=== PATIENT | female | born 1995 ===

== ENCOUNTER 2017-07-12 22:09 | Emergency (ER) | payer MEDICAID, OTHER ==
[2017-07-12 22:49] VITALS: RESP 18; TEMP 98.2; O2SAT 100
--- NOTE | 2017-07-13 00:42 | ED PDOC ---
Arrival/HPI - General Chief Complaint: Abdominal Pain Time Seen by Provider: 07/13/17 00:24 Historian: Patient - History of Present Illness Narrative History of Present Illness (Text): 07/13/17 00:39 Pt is a 22 yr old female who presents to the ED with epigastric pain that occurs approximately 20 minutes after eating for the past week. Reports that she typically eats spicy food and drinks moderate amounts of alcohol on the weekends. Denies cp, sob, fever, back pain, diarrhea. LMP 06/10/17 Time/Duration: 1 week Symptom Onset: Gradual Symptom Course: Unchanged Quality: Pressure Severity Level: 4 Activities at Onset: Rest Context: Home Past Medical History - Provider Review Nursing Documentation Reviewed: Yes - Travel History Have you recently traveled outside [place] w/in the past 3 mons?: No - Psychiatric Hx Substance Use: No Family/Social History - Physician Review Nursing Documentation Reviewed: Yes Family/Social History: Unknown Family HX Smoking Status: Light Smoker < 10 Cigarettes Daily Hx Alcohol Use: Yes Frequency of alcohol use: Few days per week Hx Substance Use: No Allergies/Home Meds Allergies/Adverse Reactions: Allergies No Known Allergies Allergy (Verified 07/14/17 05:35) Review of Systems - Review of Systems Constitutional: Normal Eyes: Normal ENT: Normal Respiratory: Normal Cardiovascular: Normal Gastrointestinal: Abdominal Pain, Nausea, Vomiting Genitourinary Female: Normal Musculoskeletal: Normal Skin: Normal Neurological: Normal Endocrine: Normal Hemo/Lymphatic: Normal Psychiatric: Normal Physical Exam Vital Signs Reviewed: Yes Vital Signs Temp Pulse Resp BP Pulse Ox 07/13/17 01:56 77 18 116/55 L 100 07/12/17 22:47 98.2 F 75 18 114/66 100 Temperature: Afebrile Blood Pressure: Normal Pulse: Regular Respiratory Rate: Normal Appearance: Positive for: Well-Appearing, Non-Toxic, Comfortable Pain Distress: None Mental Status: Positive for: Alert and Oriented X 3 - Systems Exam Head: Present: Atraumatic, Normocephalic Pupils: Present: PERRL Extroacular Muscles: Present: EOMI Conjunctiva: Present: Normal Mouth: Present: Moist Mucous Membranes Neck: Present: Normal Range of Motion Respiratory/Chest: Present: Clear to Auscultation, Good Air Exchange. No: Respiratory Distress, Accessory Muscle Use Cardiovascular: Present: Regular Rate and Rhythm, Normal S1, S2. No: Murmurs Abdomen: Present: Tenderness (diffuse), Normal Bowel Sounds. No: Distention, Peritoneal Signs, Rebound, Guarding, McBurney's Point Tender, Rovsing's Sign Present, Hernias, Feeding Tubes, Ostomy Tubes, Mass/Organomegaly, Scars, Other Back: Present: Normal Inspection. No: CVA Tenderness, Midline Tenderness Upper Extremity: Present: Normal Inspection. No: Cyanosis, Edema Lower Extremity: Present: Normal Inspection. No: Edema Neurological: Present: GCS=15, CN II-XII Intact, Speech Normal Skin: Present: Warm, Dry, Normal Color. No: Rashes Psychiatric: Present: Alert, Oriented x 3, Normal Insight, Normal Concentration Medical Decision Making ED Course and Treatment: 07/13/17 00:42 Pt is a 22 yr old female who presents to the ED with epigastric pain that occurs approximately 20 minutes after eating for the past week. On exam, deep palpation did not reproduce her pain, negative [place], negative psoas, negative rebound and rovsing, no involuntary guarding Given patient's history of spicy food and timing of pain after a meal, likely is PUD Plan UA, poc hcg famotidine assess and dispo Progress Note Pt reported mild relief after Pepcid neg hcg no uti detected advised Nexium for home and gave medication directions; return to the ED if no change or worsening of symptoms VSS on dc - Lab Interpretations Lab Results: Lab Results 07/13/17 00:55: Urine Color Yellow, Urine Appearance Sl cloudy, Urine pH 7.0, Ur Specific [place] 1.020, Urine Protein Negative, Urine Glucose (UA) Negative, Urine Ketones Trace H, Urine Blood Trace-intact H, Urine Nitrate Negative, Urine Bilirubin Negative, Urine Urobilinogen 1.0 H, Ur Leukocyte Esterase Negative, Urine RBC 0 - 2, Urine WBC 0 - 2, Ur Epithelial Cells Many, Urine Bacteria Small I have reviewed the lab results: Yes - Medication Orders Current Medication Orders: Discontinued Medications Famotidine (Pepcid) 20 mg IVP DAILY CHUCK Famotidine (Pepcid) 20 mg IVP STAT STA Stop: 07/13/17 00:57 Last Admin: 07/13/17 01:04 Dose: 20 mg IVP Administration Document 07/13/17 01:04 RD (Rec: 07/13/17 01:04 RD [id number]) Charges for Administration # of IVP Administrations 1 Disposition/Present on Arrival - Present on Arrival Any Indicators Present on Arrival: Yes History of DVT/PE: No History of Uncontrolled Diabetes: No Urinary Catheter: No History of Decub. Ulcer: No History Surgical Site Infection Following: None - Disposition Have Diagnosis and Disposition been Completed?: Yes Diagnosis: Gastritis and duodenitis Disposition: HOME/ ROUTINE Disposition Time: 01:25 Patient Plan: Discharge Patient Problems: Current Active Problems Problem Status Onset Cholecystitis Acute Choledocholithiasis Acute Condition: GOOD Discharge Instructions (ExitCare): Gastritis (DC) Additional Instructions: Avoid or decrease spicy foods along with alcohol in your diet. If you continue to have severe abdominal pain after eating, you may require an endoscopic exam to ascertain a gastric or duodenal ulcer, bu seeing a parts counter sales person. If you have any alarming symptoms in the next 24 hrs, return to the ER Prescriptions: Omeprazole 20 mg PO DAILY #10 capsule.dr Forms: [employer] ([place])
[2017-07-13 01:34] LABS: URINE APPEARANCE SL CLOUDY (CLEAR); URINE BILIRUBIN NEGATIVE (NEGATIVE); URINE BLOOD TRACE-INTACT (NEGATIVE); URINE COLOR YELLOW (YELLOW); URINE GLUCOSE (UA) NEGATIVE (NEGATIVE); URINE LEUKOCYTE ESTERASE NEGATIVE Leu/uL (NEGATIVE); URINE PROTEIN NEGATIVE mg/dL (<30 mg/dL)
[2017-07-13 01:48] LABS: URINE EPITHELIAL CELLS MANY /hpf (0-5); URINE RBC 0 - 2 /hpf (0-2); URINE WBC 0 - 2 /hpf (0-6)
[2017-07-13 01:49] LABS: URINE BACTERIA SMALL (NEG)
[2017-07-13 01:59] VITALS: BP 116/55; PULSE 77
== END 2017-07-13 02:04 | disposition home or self-care (01) ==
LOC: ED 22:09
DX: K29.70 Gastritis, unspecified, without bleeding (principal); K29.80 Duodenitis without bleeding; F17.210 Nicotine dependence, cigarettes, uncomplicated

== ENCOUNTER 2017-07-14 05:21 | Inpatient (IN) | payer MEDICAID, OTHER ==
[2017-07-14] MEDS ORDERED: Sodium Chloride 0.9% 1,000 ML IV STA ×2 (05:28→10:34)
--- NOTE | 2017-07-14 05:32 | ED PDOC ---
Arrival/HPI - General Time Seen by Provider: 07/14/17 05:22 - History of Present Illness Narrative History of Present Illness (Text): 07/14/17 05:29 22 yo female, presents with abdominal pain she has had for last day. pt was seen here in er yesterday. states she has epigastric pain, nausea, non bloody vomiting. no diarrhea. no urinary changes. Past Medical History - Psychiatric Hx Substance Use: No Family/Social History - Physician Review Nursing Documentation Reviewed: Yes Family/Social History: Unknown Family HX Smoking Status: Light Smoker < 10 Cigarettes Daily Hx Alcohol Use: Yes Hx Substance Use: No Allergies/Home Meds Allergies/Adverse Reactions: Allergies No Known Allergies Allergy (Verified 07/14/17 05:35) Review of Systems - Review of Systems Constitutional: Normal Eyes: Normal ENT: Normal Respiratory: Normal Cardiovascular: Normal Gastrointestinal: Abdominal Pain, Nausea, Vomiting Genitourinary Female: Normal Musculoskeletal: Normal Skin: Normal Neurological: Normal Endocrine: Normal Hemo/Lymphatic: Normal Psychiatric: Normal Physical Exam Vital Signs Temp Pulse Resp BP Pulse Ox 07/14/17 09:30 98 F 62 18 107/60 98 07/14/17 07:45 62 16 116/74 99 07/14/17 06:45 60 18 119/70 98 07/14/17 05:54 98.1 F 60 24 116/67 98 Temperature: Afebrile Blood Pressure: Normal Pulse: Regular Respiratory Rate: Normal Appearance: Positive for: Well-Appearing, Non-Toxic, Comfortable Pain Distress: None Mental Status: Positive for: Alert and Oriented X 3 - Systems Exam Head: Present: Atraumatic, Normocephalic Pupils: Present: PERRL Extroacular Muscles: Present: EOMI Conjunctiva: Present: Normal Mouth: Present: Moist Mucous Membranes Neck: Present: Normal Range of Motion Respiratory/Chest: Present: Clear to Auscultation, Good Air Exchange. No: Respiratory Distress, Accessory Muscle Use Cardiovascular: Present: Regular Rate and Rhythm, Normal S1, S2. No: Murmurs Abdomen: Present: Tenderness (epigastric), Guarding (voluntary). No: Distention , Peritoneal Signs, Rebound Back: Present: Normal Inspection Upper Extremity: Present: Normal Inspection. No: Cyanosis, Edema Lower Extremity: Present: Normal Inspection. No: Edema Neurological: Present: GCS=15, CN II-XII Intact, Speech Normal Skin: Present: Warm, Dry, Normal Color. No: Rashes Psychiatric: Present: Alert, Oriented x 3, Normal Insight, Normal Concentration Medical Decision Making ED Course and Treatment: 07/14/17 05:31 r/o gastritis pud pancreatitis- labs imaging pending. 07/14/17 06:51 pt endorsed pending results of US, reassessment, and final dispo. - Lab Interpretations Lab Results: 07/14/17 05:33 07/14/17 05:33 Lab Results 07/14/17 05:33: Sodium 141, Potassium 4.0, Chloride 102, Carbon Dioxide 28, Anion Gap 15, BUN 7, Creatinine 0.5 L, Est GFR ( Amer) > 60, Est GFR (Non -Af Amer) > 60, Random Glucose 136 H, Calcium 10.1, Total Bilirubin 1.2, AST 733 H, ALT 442 H, Alkaline Phosphatase 169 H, Total Protein 7.7, Albumin 4.3, Globulin 3.4, Albumin/Globulin Ratio 1.3, Lipase 81 07/14/17 05:33: Urine Color Yellow, Urine Appearance Sl cloudy, Urine pH 8.0, Ur Specific [place] 1.020, Urine Protein Trace H, Urine Glucose (UA) Negative, Urine Ketones Negative, Urine Blood Trace-intact H, Urine Nitrate Negative, Urine Bilirubin Small H, Urine Urobilinogen 4.0 H, Ur Leukocyte Esterase Negative, Urine RBC 0 - 2, Urine WBC 0 - 2, Ur Epithelial Cells 4 - 5, Urine Bacteria Mod, Urine HCG, Qual Negative 07/14/17 05:33: PT 11.9, INR 1.03, APTT 27.1 07/14/17 05:33: WBC 8.4, RBC 4.19, Hgb 12.5, Hct 36.7, MCV 87.6, MCH 29.8, MCHC 34.1, RDW 13.7, Plt Count 447, MPV 10.9, Gran % 78.7 H, Lymph % (Auto) 12.3 L, [place] % (Auto) 7.3 H, Eos % (Auto) 1.3 L, Baso % (Auto) 0.4, Gran # 6.61 H, Lymph # (Auto) 1.0 L, [place] # (Auto) 0.6, Eos # (Auto) 0.1, Baso # (Auto) 0.03 - RAD Interpretation Radiology Orders: 07/14/17 05:28 CXR [CHEST PORTABLE] [RAD] Stat 07/14/17 06:27 ABDOMEN COMPLETE [US] Stat - Medication Orders Current Medication Orders: Sodium Chloride (Sodium Chloride 0.9%) 1,000 mls @ 100 mls/hr IV .Q10H [facility] Last Admin: 07/14/17 12:07 Dose: 100 mls/hr eMAR Start Stop Document 07/14/17 12:07 LMN (Rec: 07/14/17 12:07 [place]N [facility] [id number] Intravenous Solution Start Date 07/14/17 Start Time 12:05 Metronidazole (Flagyl) 500 mg in 100 mls @ 100 mls/hr IVPB Q8 [facility] PRN Reason: Protocol Last Admin: 07/14/17 14:50 Dose: 100 mls/hr eMAR Start Stop Document 07/14/17 14:50 LMN (Rec: 07/14/17 15:35 LMN [facility] [id number][place] Intravenous Solution Start Date 07/14/17 Start Time 14:50 Ceftriaxone Sodium (Rocephin 2 Gm Ivpb) 2 gm in 100 mls @ 100 mls/hr IVPB DAILY [facility] PRN Reason: Protocol Morphine Sulfate (Morphine) 2 mg IVP Q4H PRN PRN Reason: Pain, moderate (4-7) Ondansetron HCl (Zofran Inj) 4 mg IVP Q6H PRN PRN Reason: Nausea/Vomiting Pantoprazole Sodium (Protonix Inj) 40 mg IVP DAILY [facility] Last Admin: 07/14/17 12:07 Dose: 40 mg IVP Administration Document 07/14/17 12:07 LMN (Rec: 07/14/17 12:08 LMN [facility] [id number][place] Charges for Administration # of IVP Administrations 1 Discontinued Medications Sodium Chloride (Sodium Chloride 0.9%) 1,000 mls @ 1,000 mls/hr IV .Q1H STA Stop: 07/14/17 06:27 Last Admin: 07/14/17 05:43 Dose: 1,000 mls/hr eMAR Start Stop Document 07/14/17 05:43 SS (Rec: 07/14/17 05:43 SS [facility] [id number] Intravenous Solution Start Date 07/14/17 Start Time 05:43 End Date 07/14/17 End time 06:43 Total Infusion Time 60 Metronidazole (Flagyl) 500 mg in 100 mls @ 100 mls/hr IVPB STAT STA PRN Reason: Protocol Stop: 07/14/17 09:52 Last Admin: 07/14/17 09:29 Dose: 100 mls/hr eMAR Start Stop Document 07/14/17 09:29 LA (Rec: 07/14/17 09:29 LA [id number]) Intravenous Solution Start Date 07/14/17 Start Time 09:29 End Date 07/14/17 End time 10:29 Total Infusion Time 60 Cefepime HCl (Maxipime 2gm) 2 gm in 100 mls @ 100 mls/hr IVPB STAT STA PRN Reason: Protocol Stop: 07/14/17 09:52 Last Admin: 07/14/17 12:08 Dose: 100 mls/hr eMAR Start Stop Document 07/14/17 12:08 LMN (Rec: 07/14/17 12:08 LMN [facility] [id number] Intravenous Solution Start Date 07/14/17 Start Time 12:08 Sodium Chloride (Sodium Chloride 0.9%) 1,000 mls @ 999 mls/hr IV .Q1H1M STA Stop: 07/14/17 11:34 Last Admin: 07/14/17 10:40 Dose: 999 mls/hr eMAR Start Stop Document 07/14/17 10:40 LMN (Rec: 07/14/17 10:54 LMN [facility] [id number][place] Intravenous Solution Start Date 07/14/17 Start Time 10:45 Ceftriaxone Sodium (Rocephin 1 Gram Ivpb) 1 gm in 100 mls @ 100 mls/hr IVPB DAILY [facility]UCK PRN Reason: Protocol Metronidazole (Flagyl) 500 mg in 100 mls @ 100 mls/hr IVPB Q8 [facility] PRN Reason: Protocol Ketorolac Tromethamine (Toradol) 30 mg IVP STAT STA Stop: 07/14/17 09:26 Last Admin: 07/14/17 09:30 Dose: 30 mg MAR Pain Assessment Document 07/14/17 09:30 LA (Rec: 07/14/17 09:31 LA [id number]) Pain Reassessment Is this a pain reassessment? No Sleep Is patient sleeping during reassessment? No Presence of Pain Presence of Pain Yes Pain Scale Used Pain Scale Used Numeric Location Left, Right or Bilateral Right Upper or Lower Upper Pain Location Body Site Abdomen Description Description Constant Intensity of Pain at present 8 Pain Behavior Crying Guarding IVP Administration Document 07/14/17 09:30 LA (Rec: 07/14/17 09:31 LA [id number]) Charges for Administration # of IVP Administrations 1 Morphine Sulfate (Morphine) 2 mg IVP STAT STA Stop: 07/14/17 05:37 Last Admin: 07/14/17 05:43 Dose: 2 mg IVP Administration Document 07/14/17 05:43 SS (Rec: 07/14/17 05:43 SS [facility] [id number][place] Charges for Administration # of IVP Administrations 1 Morphine Sulfate (Morphine) 2 mg IVP STAT STA Stop: 07/14/17 06:07 Last Admin: 07/14/17 06:10 Dose: 2 mg IVP Administration Document 07/14/17 06:10 SS (Rec: 07/14/17 06:10 SS [facility] [id number]) Charges for Administration # of IVP Administrations 1 Morphine Sulfate (Morphine) 4 mg IVP STAT STA Stop: 07/14/17 06:28 Last Admin: 07/14/17 06:42 Dose: 4 mg MAR Pain Assessment Document 07/14/17 06:42 SS (Rec: 07/14/17 06:44 SS [facility] [id number]) Pain Reassessment Is this a pain reassessment? Yes Sleep Is patient sleeping during reassessment? No Presence of Pain Presence of Pain Yes Pain Scale Used Pain Scale Used Numeric Location Upper or Lower Upper Pain Location Body Site Abdomen Description Description Sharp Intensity of Pain at present 9 Pain Behavior Moaning Crying Guarding Grasping Site Rubbing Site Restlessness Screaming IVP Administration Document 07/14/17 06:42 SS (Rec: 07/14/17 06:44 SS [facility] [id number]) Charges for Administration # of IVP Administrations 1 Morphine Sulfate (Morphine) 4 mg IVP STAT STA Stop: 07/14/17 08:35 Last Admin: 07/14/17 08:40 Dose: 4 mg MAR Pain Assessment Document 07/14/17 08:40 LMC (Rec: 07/14/17 08:40 L[facility] [id number]) Pain Reassessment Is this a pain reassessment? Yes Sleep Is patient sleeping during reassessment? No Presence of Pain Presence of Pain Yes Pain Scale Used Pain Scale Used Numeric Location Left, Right or Bilateral Right Pain Location Body Site Abdomen Description Description Throbbing Intensity of Pain at present 10 IVP Administration Document 07/14/17 08:40 LMC (Rec: 07/14/17 08:40 [facility] [id number]) Charges for Administration # of IVP Administrations 1 Morphine Sulfate (Morphine) 4 mg IVP STAT STA Stop: 07/14/17 08:50 Last Admin: 07/14/17 08:55 Dose: 4 mg MAR Pain Assessment Document 07/14/17 08:55 LMC (Rec: 07/14/17 08:56 L[facility] [id number]) Pain Reassessment Is this a pain reassessment? Yes Sleep Is patient sleeping during reassessment? No Presence of Pain Presence of Pain Yes Location Pain Location Body Site Abdomen Description Description Constant Intensity of Pain at present 9 IVP Administration Document 07/14/17 08:55 LMC (Rec: 07/14/17 08:56 L[facility] [id number]) Charges for Administration # of IVP Administrations 1 Morphine Sulfate (Morphine) 2 mg IVP Q4H PRN PRN Reason: Pain, moderate (4-7) Ondansetron HCl (Zofran Inj) 4 mg IVP STAT STA Stop: 07/14/17 05:29 Last Admin: 07/14/17 05:43 Dose: 4 mg IVP Administration Document 07/14/17 05:43 SS (Rec: 07/14/17 05:43 SS [facility] [id number][place] Charges for Administration # of IVP Administrations 1 Pantoprazole Sodium (Protonix Inj) 40 mg IVP STAT STA Stop: 07/14/17 05:33 Last Admin: 07/14/17 05:43 Dose: 40 mg IVP Administration Document 07/14/17 05:43 SS (Rec: 07/14/17 05:43 SS [facility] [id number]) Charges for Administration # of IVP Administrations 1 Disposition/Present on Arrival - Present on Arrival Any Indicators Present on Arrival: No History of DVT/PE: No History of Uncontrolled Diabetes: No Urinary Catheter: No History Surgical Site Infection Following: None - Disposition Have Diagnosis and Disposition been Completed?: Yes Diagnosis: Cholecystitis, Choledocholithiasis Disposition: HOSPITALIZED Disposition Time: 07:00 Patient Problems: Current Active Problems Problem Status Onset Cholecystitis Acute Choledocholithiasis Acute Condition: GUARDED
[2017-07-14] MEDS ORDERED: Morphine 2 mg/2 mL syringe IVP STA ×2 (05:36→06:06)
[2017-07-14 05:57] LABS: BASO # 0.03 K/mm3 (0.0-2.0); BASO % 0.4 % (0.0-3.0); EOS # 0.1 (0.0-0.7); EOS % 1.3 % (1.5-5.0); GRAN # 6.61 (1.4-6.5); GRAN % 78.7 % (50.0-68.0); HEMOGLOBIN 12.5 g/dL (12.0-16.0); LYMPH % 12.3 % (22.0-35.0); MEAN CELL VOLUME 87.6 fl (80.0-105.0); MEAN CORPUSCULAR HEMOGLOBIN 29.8 pg (25.0-35.0); MEAN CORPUSCULAR HGB CONC 34.1 g/dl (31.0-37.0); MEAN PLATELET VOLUME 10.9 fl (7.0-11.0); MONO # 0.6 (0.1-0.6); MONO % 7.3 % (1.0-6.0); RBC 4.19 10^6/uL (3.5-6.1); RED CELL DISTRIBUTION WIDTH 13.7 % (11.5-14.5); WHITE BLOOD COUNT 8.4 10^3/ul (4.5-11.0)
[2017-07-14 06:04] LABS: ALB/GLOB RATIO 1.3 (1.1-1.8); ALBUMIN 4.3 g/dL (3.0-4.8); ALT/SGPT 442 U/L (7-56); AST/SGOT 733 U/L (14-36); BLOOD UREA NITROGEN 7 mg/dL (7-21); CALCIUM 10.1 mg/dL (8.4-10.5); GFR AFRICAN-AMERICAN > 60; GFR NON-AFRICAN AMERICAN > 60; LIPASE 81 U/L (23-300)
[2017-07-14 06:09] LABS: URINE BILIRUBIN SMALL (NEGATIVE); URINE BLOOD TRACE-INTACT (NEGATIVE); URINE GLUCOSE (UA) NEGATIVE (NEGATIVE); URINE LEUKOCYTE ESTERASE NEGATIVE Leu/uL (NEGATIVE); URINE PROTEIN TRACE mg/dL (<30 mg/dL)
[2017-07-14 06:11] LABS: URINE APPEARANCE SL CLOUDY (CLEAR); URINE COLOR YELLOW (YELLOW)
[2017-07-14] MEDS ORDERED: Morphine 4 mg/ml ISec IVP STA ×3 (06:27→08:49)
[2017-07-14 06:29] LABS: HCG,QUALITATIVE URINE NEGATIVE (NEGATIVE); URINE BACTERIA MOD (NEG); URINE RBC 0 - 2 /hpf (0-2); URINE WBC 0 - 2 /hpf (0-6)
[2017-07-14 06:30] LABS: INR 1.03 (0.93-1.08); PARTIAL THROMBOPLASTIN TIME 27.1 Seconds (25.1-36.5); PROTHROMBIN TIME 11.9 SECONDS (9.4-12.5)
--- NOTE | 2017-07-14 07:29 | ED PDOC ---
Physical Exam Vital Signs Reviewed: Yes Vital Signs Temp Pulse Resp BP Pulse Ox 07/14/17 09:30 98 F 62 18 107/60 98 07/14/17 07:45 62 16 116/74 99 07/14/17 06:45 60 18 119/70 98 07/14/17 05:54 98.1 F 60 24 116/67 98 Temperature: Afebrile Blood Pressure: Normal Pulse: Regular Respiratory Rate: Normal Appearance: Positive for: Well-Appearing Pain Distress: None Medical Decision Making ED Course and Treatment: 07/14/17 07:06 Patient transferrred to al by Dr. Villar. Patient awaiting follow-up Ultrasound , reevaluation and admission. 07/14/2017 08:16 Abdominal Ultrasound IMPRESSION: Sonographic pattern suspicious for cholecystitis the possibly basis of choledocholithiasis as discussed above. Mild dilatation of the common bile duct is identified. Follow-up MRCP is recommended for further characterization of the biliary tree. No gross intrahepatic biliary dilatation. Partial imaging of the pancreas. Dictator: Don Rock MD 07/14/17 08:[address] Leyva, surgery attending, who will evaluate patient. She recommended admitting to the hospitalist service. Case discussed with development vice president, Dr. Stephens. Case discussed with Dr. Mendez, Hospitalist who will come and evaluate patient. 07/14/17 10:[address] Mejia who is covering for GI. He states he ordered an MRCP and he will f/u on her. He states if she's tolerating clears he's ok with that diet. Patient's pain is now controlled. She received an additional Morphine 4mg x 2 and Toradol 30mg IV. - Critical Care Critical Care Minutes: 30 minutes - Lab Interpretations Lab Results: 07/14/17 05:33 07/14/17 05:33 Lab Results 07/14/17 05:33: Sodium 141, Potassium 4.0, Chloride 102, Carbon Dioxide 28, Anion Gap 15, BUN 7, Creatinine 0.5 L, Est GFR ( Amer) > 60, Est GFR (Non -Af Amer) > 60, Random Glucose 136 H, Calcium 10.1, Total Bilirubin 1.2, AST 733 H, ALT 442 H, Alkaline Phosphatase 169 H, Total Protein 7.7, Albumin 4.3, Globulin 3.4, Albumin/Globulin Ratio 1.3, Lipase 81 07/14/17 05:33: Urine Color Yellow, Urine Appearance Sl cloudy, Urine pH 8.0, Ur Specific [place] 1.020, Urine Protein Trace H, Urine Glucose (UA) Negative, Urine Ketones Negative, Urine Blood Trace-intact H, Urine Nitrate Negative, Urine Bilirubin Small H, Urine Urobilinogen 4.0 H, Ur Leukocyte Esterase Negative, Urine RBC 0 - 2, Urine WBC 0 - 2, Ur Epithelial Cells 4 - 5, Urine Bacteria Mod, Urine HCG, Qual Negative 07/14/17 05:33: PT 11.9, INR 1.03, APTT 27.1 07/14/17 05:33: WBC 8.4, RBC 4.19, Hgb 12.5, Hct 36.7, MCV 87.6, MCH 29.8, MCHC 34.1, RDW 13.7, Plt Count 447, MPV 10.9, Gran % 78.7 H, Lymph % (Auto) 12.3 L, [place] % (Auto) 7.3 H, Eos % (Auto) 1.3 L, Baso % (Auto) 0.4, Gran # 6.61 H, Lymph # (Auto) 1.0 L, [place] # (Auto) 0.6, Eos # (Auto) 0.1, Baso # (Auto) 0.03 - RAD Interpretation Radiology Orders: 07/14/17 05:28 CXR [CHEST PORTABLE] [RAD] Stat 07/14/17 06:27 ABDOMEN COMPLETE [US] Stat - Medication Orders Current Medication Orders: Sodium Chloride (Sodium Chloride 0.9%) 1,000 mls @ 100 mls/hr IV .Q10H CHUCK Piperacillin Sod/Tazobactam Sod (Zosyn 3.375 In Ns 100ml) 100 mls @ 200 mls/hr IVPB Q6 CHUCK PRN Reason: Protocol Stop: 07/14/17 18:29 Morphine Sulfate (Morphine) 2 mg IVP Q4H PRN PRN Reason: Pain, moderate (4-7) Ondansetron HCl (Zofran Inj) 4 mg IVP Q6H PRN PRN Reason: Nausea/Vomiting Pantoprazole Sodium (Protonix Inj) 40 mg IVP DAILY CHUCK Discontinued Medications Sodium Chloride (Sodium Chloride 0.9%) 1,000 mls @ 1,000 mls/hr IV .Q1H STA Stop: 07/14/17 06:27 Last Admin: 07/14/17 05:43 Dose: 1,000 mls/hr eMAR Start Stop Document 07/14/17 05:43 SS (Rec: 07/14/17 05:43 SS [facility] [id number]) Intravenous Solution Start Date 07/14/17 Start Time 05:43 End Date 07/14/17 End time 06:43 Total Infusion Time 60 Metronidazole (Flagyl) 500 mg in 100 mls @ 100 mls/hr IVPB STAT STA PRN Reason: Protocol Stop: 07/14/17 09:52 Last Admin: 07/14/17 09:29 Dose: 100 mls/hr eMAR Start Stop Document 07/14/17 09:29 LA (Rec: 07/14/17 09:29 LA [id number]) Intravenous Solution Start Date 07/14/17 Start Time 09:29 End Date 07/14/17 End time 10:29 Total Infusion Time 60 Cefepime HCl (Maxipime 2gm) 2 gm in 100 mls @ 100 mls/hr IVPB STAT STA PRN Reason: Protocol Stop: 07/14/17 09:52 Ketorolac Tromethamine (Toradol) 30 mg IVP STAT STA Stop: 07/14/17 09:26 Last Admin: 07/14/17 09:30 Dose: 30 mg MAR Pain Assessment Document 07/14/17 09:30 LA (Rec: 07/14/17 09:31 LA [id number]) Pain Reassessment Is this a pain reassessment? No Sleep Is patient sleeping during reassessment? No Presence of Pain Presence of Pain Yes Pain Scale Used Pain Scale Used Numeric Location Left, Right or Bilateral Right Upper or Lower Upper Pain Location Body Site Abdomen Description Description Constant Intensity of Pain at present 8 Pain Behavior Crying Guarding IVP Administration Document 07/14/17 09:30 LA (Rec: 07/14/17 09:31 LA [id number]) Charges for Administration # of IVP Administrations 1 Morphine Sulfate (Morphine) 2 mg IVP STAT STA Stop: 07/14/17 05:37 Last Admin: 07/14/17 05:43 Dose: 2 mg IVP Administration Document 07/14/17 05:43 SS (Rec: 07/14/17 05:43 [facility] [id number] Charges for Administration # of IVP Administrations 1 Morphine Sulfate (Morphine) 2 mg IVP STAT STA Stop: 07/14/17 06:07 Last Admin: 07/14/17 06:10 Dose: 2 mg IVP Administration Document 07/14/17 06:10 SS (Rec: 07/14/17 06:10 [facility] [id number] Charges for Administration # of IVP Administrations 1 Morphine Sulfate (Morphine) 4 mg IVP STAT STA Stop: 07/14/17 06:28 Last Admin: 07/14/17 06:42 Dose: 4 mg MAR Pain Assessment Document 07/14/17 06:42 SS (Rec: 07/14/17 06:44 [facility] [id number] Pain Reassessment Is this a pain reassessment? Yes Sleep Is patient sleeping during reassessment? No Presence of Pain Presence of Pain Yes Pain Scale Used Pain Scale Used Numeric Location Upper or Lower Upper Pain Location Body Site Abdomen Description Description Sharp Intensity of Pain at present 9 Pain Behavior Moaning Crying Guarding Grasping Site Rubbing Site Restlessness Screaming IVP Administration Document 07/14/17 06:42 SS (Rec: 07/14/17 06:44 [facility] [id number][facility] Charges for Administration # of IVP Administrations 1 Morphine Sulfate (Morphine) 4 mg IVP STAT STA Stop: 07/14/17 08:35 Last Admin: 07/14/17 08:40 Dose: 4 mg MAR Pain Assessment Document 07/14/17 08:40 [facility] (Rec: 07/14/17 08:40 [facility] [id number]) Pain Reassessment Is this a pain reassessment? Yes Sleep Is patient sleeping during reassessment? No Presence of Pain Presence of Pain Yes Pain Scale Used Pain Scale Used Numeric Location Left, Right or Bilateral Right Pain Location Body Site Abdomen Description Description Throbbing Intensity of Pain at present 10 IVP Administration Document 07/14/17 08:40 [facility] (Rec: 07/14/17 08:40 [facility] [id number]) Charges for Administration # of IVP Administrations 1 Morphine Sulfate (Morphine) 4 mg IVP STAT STA Stop: 07/14/17 08:50 Last Admin: 07/14/17 08:55 Dose: 4 mg MAR Pain Assessment Document 07/14/17 08:55 [facility] (Rec: 07/14/17 08:56 [facility] [id number]) Pain Reassessment Is this a pain reassessment? Yes Sleep Is patient sleeping during reassessment? No Presence of Pain Presence of Pain Yes Location Pain Location Body Site Abdomen Description Description Constant Intensity of Pain at present 9 IVP Administration Document 07/14/17 08:55 [facility] (Rec: 07/14/17 08:56 [facility] [id number]) Charges for Administration # of IVP Administrations 1 Morphine Sulfate (Morphine) 2 mg IVP Q4H PRN PRN Reason: Pain, moderate (4-7) Ondansetron HCl (Zofran Inj) 4 mg IVP STAT STA Stop: 07/14/17 05:29 Last Admin: 07/14/17 05:43 Dose: 4 mg IVP Administration Document 07/14/17 05:43 SS (Rec: 07/14/17 05:43 [facility] [id number][place] Charges for Administration # of IVP Administrations 1 Pantoprazole Sodium (Protonix Inj) 40 mg IVP STAT STA Stop: 07/14/17 05:33 Last Admin: 07/14/17 05:43 Dose: 40 mg IVP Administration Document 07/14/17 05:43 SS (Rec: 07/14/17 05:43 [facility] [id number]) Charges for Administration # of IVP Administrations 1 - Scribe Statement The provider has reviewed the documentation as recorded by the Minh Whitmore Provider Scribe Attestation: All medical record entries made by the Farzanehibtricia were at my direction and personally dictated by me. I have reviewed the chart and agree that the record accurately reflects my personal performance of the history, physical exam, medical decision making, and the department course for this patient. I have also personally directed, reviewed, and agree with the discharge instructions and disposition. Disposition/Present on Arrival - Present on Arrival Any Indicators Present on Arrival: No History of DVT/PE: No History of Uncontrolled Diabetes: No Urinary Catheter: No History of Decub. Ulcer: No History Surgical Site Infection Following: None - Disposition Have Diagnosis and Disposition been Completed?: Yes Diagnosis: Cholecystitis, Choledocholithiasis Disposition Time: 08:49 Patient Plan: Admission Patient Problems: Current Active Problems Problem Status Onset Cholecystitis Acute Choledocholithiasis Acute Condition: GUARDED
--- NOTE | 2017-07-14 08:18 | US ---
HISTORY: upper abd pain COMPARISON: None. TECHNIQUE: Sonographic evaluation of the abdomen. FINDINGS: LIVER: Measures 17.1 cm. Normal echogenicity of the liver parenchyma. No mass. No intrahepatic bile duct dilatation. GALLBLADDER: Gallbladder palm is distended with numerous calculi within the lumen. The wall is thickened up to 3.7 mm at although there is no definitive pericholecystic fluid collection, there is a positive sonographic Fleming sign. Sludge is also identified in the lumen. The common bile duct is measured up to 6.4 mm caliber which is dilated slightly, with an 8-9 mm calculus questioned at its midportion. Follow-up MRCP is advised. PANCREAS: The tail of the pancreas is obscured by overlying bowel gas with remainder unremarkable. RIGHT KIDNEY: Measures 9.5cm. Normal echogenicity. No calculus, mass, or hydronephrosis. LEFT KIDNEY: Measures 9.2cm. Normal echogenicity. No calculus, mass, or hydronephrosis. SPLEEN: Normal in size and contour. No mass. AORTA: No aneurysmal dilatation. IVC: Unremarkable. OTHER FINDINGS: None. IMPRESSION: Sonographic pattern suspicious for cholecystitis the possibly basis of choledocholithiasis as discussed above. Mild dilatation of the common bile duct is identified. Follow-up MRCP is recommended for further characterization of the biliary tree. No gross intrahepatic biliary dilatation. Partial imaging of the pancreas.
--- NOTE | 2017-07-14 08:49 | CP.PCM.CON ---
History of Present Illness - History of Present Illness History of Present Illness: Surgery Consult for Dr Leyva: Reason for consult: cholecystitis, choledocholithiaisis 22 year old female, with no significant PMH, presents with epigastric pain for past 3 days. Pt states that it first started after she had spicy buffalo wings, describes it as achy, cramping. Has associated nausea and nonbilious, nonbloody vomiting episodes. Denies fever, chills, jaundice, change in mental status, diarrhea, constipation, melena, hematochezia, urinary symptoms, cough. Denies previous such episodes. Pt emigrated from [place] 3 months ago. In ED, pt afebrile, vitals stable. Labs significant for elevated AST 733, ALT 442, ALP 169. Abdominal US showed mild dilatation of CBD, 6.4 mm with 8-9 mm calculus in midportion. Thickened gallbladder wall and + sonographic Fleming's. 12 point ROS obtained and negative, except as per HPI. PMH: denies PSH: denies All: NKA FH: denies SH: immigrated from [place] 3 months ago. Lives with father and younger brother. Smokes 3 ciggs/day x past 3 months, occasional marijuana user (last use this morning), drinks alcohol socially. Eats junk, spicy foods. Review of Systems - Review of Systems All systems: reviewed and no additional remarkable complaints except Review of Systems: as per HPI Past Patient History - Past Social History Smoking Status: Light Smoker < 10 Cigarettes Daily - PSYCHIATRIC Hx Substance Use: No - SURGICAL HISTORY Hx Surgeries: No - ANESTHESIA Hx Anesthesia: No Meds Allergies/Adverse Reactions: Allergies Allergy/AdvReac Type Severity Reaction Status Date / Time No Known Allergies Allergy Verified 07/14/17 05:35 Physical Exam - Constitutional Appears: Non-toxic, In Acute Distress - Head Exam Head Exam: ATRAUMATIC, NORMOCEPHALIC - Eye Exam Eye Exam: EOMI, PERRL. absent: Conjunctival injection, Periorbital swelling, Scleral icterus Pupil Exam: NORMAL ACCOMODATION, PERRL. absent: Irregular, Unequal - ENT Exam ENT Exam: Mucous Membranes Moist - Respiratory Exam Respiratory Exam: Clear to Auscultation Bilateral, NORMAL BREATHING PATTERN. absent: Accessory Muscle Use, Rhonchi, Wheezes - Cardiovascular Exam Cardiovascular Exam: RRR, +S1, +S2. absent: Systolic Murmur - GI/Abdominal Exam GI & Abdominal Exam: Guarding, Hypoactive Bowel Sounds, Normal Bowel Sounds, Soft, Tenderness (epigastric). absent: Distended, Firm, Rebound, Rigid - Extremities Exam Extremities exam: Positive for: normal inspection. Negative for: calf tenderness, pedal edema - Back Exam Back exam: NORMAL INSPECTION. absent: CVA tenderness (L), CVA tenderness (R) - Neurological Exam Neurological exam: Alert, Oriented x3 - Psychiatric Exam Psychiatric exam: Normal Affect, Normal Mood - Skin Skin Exam: Dry, Normal Color, Warm Results - Vital Signs Recent Vital Signs: Last Vital Signs Temp 98.1 F 07/14/17 05:54 Pulse 62 07/14/17 07:45 Resp 16 07/14/17 07:45 BP 116/74 07/14/17 07:45 Pulse Ox 99 07/14/17 07:45 - Labs Result Diagrams: 07/14/17 05:33 07/14/17 05:33 Labs: Laboratory Results - last 24 hr 07/14/17 07/14/17 07/14/17 05:33 05:33 05:33 WBC 8.4 RBC 4.19 Hgb 12.5 Hct 36.7 MCV 87.6 MCH 29.8 MCHC 34.1 RDW 13.7 Plt Count 447 MPV 10.9 Gran % 78.7 H Lymph % (Auto) 12.3 L [place] % (Auto) 7.3 H Eos % (Auto) 1.3 L Baso % (Auto) 0.4 Gran # 6.61 H Lymph # (Auto) 1.0 L [place] # (Auto) 0.6 Eos # (Auto) 0.1 Baso # (Auto) 0.03 PT 11.9 INR 1.03 APTT 27.1 Sodium Potassium Chloride Carbon Dioxide Anion Gap BUN Creatinine Est GFR ( Amer) Est GFR (Non-Af Amer) Random Glucose Calcium Total Bilirubin AST ALT Alkaline Phosphatase Total Protein Albumin Globulin Albumin/Globulin Ratio Lipase Urine Color Yellow Urine Appearance Sl cloudy Urine pH 8.0 Ur Specific [place] 1.020 Urine Protein Trace H Urine Glucose (UA) Negative Urine Ketones Negative Urine Blood Trace-intact H Urine Nitrate Negative Urine Bilirubin Small H Urine Urobilinogen 4.0 H Ur Leukocyte Esterase Negative Urine RBC 0 - 2 Urine WBC 0 - 2 Ur Epithelial Cells 4 - 5 Urine Bacteria Mod Urine HCG, Qual Negative 07/14/17 05:33 WBC RBC Hgb Hct MCV MCH MCHC RDW Plt Count MPV Gran % Lymph % (Auto) [place] % (Auto) Eos % (Auto) Baso % (Auto) Gran # Lymph # (Auto) [place] # (Auto) Eos # (Auto) Baso # (Auto) PT INR APTT Sodium 141 Potassium 4.0 Chloride 102 Carbon Dioxide 28 Anion Gap 15 BUN 7 Creatinine 0.5 L Est GFR ( Amer) > 60 Est GFR (Non-Af Amer) > 60 Random Glucose 136 H Calcium 10.1 Total Bilirubin 1.2 AST 733 H ALT 442 H Alkaline Phosphatase 169 H Total Protein 7.7 Albumin 4.3 Globulin 3.4 Albumin/Globulin Ratio 1.3 Lipase 81 Urine Color Urine Appearance Urine pH Ur Specific [place] Urine Protein Urine Glucose (UA) Urine Ketones Urine Blood Urine Nitrate Urine Bilirubin Urine Urobilinogen Ur Leukocyte Esterase Urine RBC Urine WBC Ur Epithelial Cells Urine Bacteria Urine HCG, Qual - Imaging and Cardiology US - abdomen Additional comment: Abd US: Mild dilatation of CBD, 6.4 mm - 8-9mm calculus in midportion. thickened GB wall, 3.7 mm. positive sonographic Fleming sign. No definitive pericholecystic fluid collection. F/u MRCP. Assessment & Plan - Assessment and Plan (Free Text) Assessment: 22 year old female with no significant PMH, presents for cholecystitis/ choledocholithiaisis: - NPO - IV antibiotics - Pain control - Zofran - Follow up GI recs. - Further recs per Dr Leyva - Date & Time Date: 07/14/17 Time: 09:49
[2017-07-14] MEDS ORDERED: Cefepime IV 2 gm in NS 2 GM/100 ML BAG IVPB STA (08:53)
[2017-07-14] MEDS ORDERED: metroNIDAZOLE IV 500 mg/100 ml 500 MG/100 ML BAG IVPB STA (08:53)
--- NOTE | 2017-07-14 09:10 | RAD ---
HISTORY: abd pain COMPARISON: No prior. FINDINGS: LUNGS: No active pulmonary disease. PLEURA: No significant pleural effusion identified, no pneumothorax apparent. CARDIOVASCULAR: Normal. OSSEOUS STRUCTURES: No significant abnormalities. VISUALIZED UPPER ABDOMEN: Normal. OTHER FINDINGS: None. IMPRESSION: No active disease.
[2017-07-14] MEDS ORDERED: Morphine 2 mg/ml ISec IVP PRN (09:43)
[2017-07-14] MEDS ORDERED: Morphine 2 mg/2 mL syringe IVP PRN ×2 (09:54→21:26)
--- NOTE | 2017-07-14 10:50 | CP.PCM.HP ---
<Wanda Valdez - Last Filed: 07/14/17 13:56> History of Present Illness - History of Present Illness History of Present Illness: 22 year old female with no past medical history who presents with 3 days of worsening epigastric pain, nausea, vomiting. The pain has become persistent and localized to the epigastric area, non-radiating, worsened with meals. She denies any relieving factors. She denies fever, chills, weight loss, dysuria, hematochezia, melena or rash. She reports eating spicy foods. She has never been and has never had a surgery before. She is sexually active, does not use contraceptive, LMP was in the middle of June of this year. She admits to a similar episode of severe abdominal pain a week ago that resolved spontaneously and lasted less than 30 minutes. PMH: Denies PSH: Denies FH: Denies Allergies: NKDA Social: Smokes 3 cigarettes for the past 3 months, drinks on the weekends, works at [employer] Present on Admission - Present on Admission Any Indicators Present on Admission: No Review of Systems - Review of Systems All systems: reviewed and no additional remarkable complaints except (as per HPI ) Past Patient History - Past Social History Smoking Status: Light Smoker < 10 Cigarettes Daily - PSYCHIATRIC Hx Substance Use: No - SURGICAL HISTORY Hx Surgeries: No - ANESTHESIA Hx Anesthesia: No Meds Allergies/Adverse Reactions: Allergies Allergy/AdvReac Type Severity Reaction Status Date / Time No Known Allergies Allergy Verified 07/14/17 05:35 Physical Exam - Constitutional Additional comments: in pain - Head Exam Head Exam: ATRAUMATIC, NORMOCEPHALIC - Eye Exam Eye Exam: EOMI, Normal appearance - ENT Exam ENT Exam: Mucous Membranes Dry - Neck Exam Neck exam: Positive for: Normal Inspection - Respiratory Exam Respiratory Exam: Clear to Auscultation Bilateral, NORMAL BREATHING PATTERN. absent: Accessory Muscle Use - Cardiovascular Exam Cardiovascular Exam: RRR, +S1, +S2 - GI/Abdominal Exam GI & Abdominal Exam: Tenderness (epigastric area). absent: Distended, Guarding , Rebound - Extremities Exam Extremities exam: Positive for: normal inspection. Negative for: calf tenderness - Back Exam Back exam: NORMAL INSPECTION. absent: CVA tenderness (L), CVA tenderness (R) - Neurological Exam Neurological exam: Alert, CN II-XII Intact, Oriented x3 - Psychiatric Exam Psychiatric exam: Normal Affect, Normal Mood - Skin Skin Exam: Dry, Intact, Normal Color, Warm Results - Vital Signs Recent Vital Signs: Last Vital Signs Temp 98 F 07/14/17 09:30 Pulse 62 07/14/17 09:30 Resp 18 07/14/17 09:30 BP 107/60 07/14/17 09:30 Pulse Ox 98 07/14/17 09:30 - Labs Result Diagrams: 07/14/17 05:33 07/14/17 05:33 Assessment & Plan - Assessment and Plan (Free Text) Assessment: Choledocolithiasis - GI and Surgery on board - VS stable, no leukocytosis, AST 733, ALT 442, and Alk phos 169 - Abdominal US shows gallbladder palm is distended with numerous calculi within the lumen. The wall is thickened up to 3.7 mm at although there is no definitive pericholecystic fluid collection, there is a positive sonographic Fleming sign. Sludge is also identified in the lumen. The common bile duct is measured up to 6.4 mm caliber which is dilated slightly , with an 8-9 mm calculus questioned at its midportion. Follow-up MRCP is advised. - Ceftriaxone and Metronidazole - Zosyn discontinued - Zofran 4 mg q4h - Morphine 2 mg q4h PRN - NS 100 ml/hr - MRCP ordered 2) GI/DVT prophylaxis - Protonix 40 mg Daily - SCD Disposition: NPO unless otherwise indicated Case reviewed and discussed with Dr. Gracia - Date & Time Date: 07/14/17 Time: 13:47 Decision To Admit - . Bed Request Type: Med/Surg <Cas Gracia - Last Filed: 07/14/17 17:33> Results - Vital Signs Recent Vital Signs: Last Vital Signs Temp 98.3 F 07/14/17 14:00 Pulse 59 L 07/14/17 14:00 Resp 20 07/14/17 14:00 BP 96/61 L 07/14/17 14:00 Pulse Ox 99 07/14/17 14:00 - Labs Result Diagrams: 07/14/17 05:33 07/14/17 05:33 Labs: Laboratory Results - last 24 hr 07/14/17 08:55 Hepatitis A IgM Ab Negative Hep Bs Antigen Negative Hep B Core IgM Ab Negative Attending/Attestation - Attestation I have personally seen and examined this patient.: Yes I have fully participated in the care of the patient.: Yes I have reviewed all pertinent clinical information: Yes Notes (Text): 07/14/17 17:31 Medical record note made by the resident after discussion with my direction and input after the patient was personally seen and examined by me. I have reviewed the chart and agree that the record accurately reflects by personal performance of the history, physical exam, data review, and medical decision-making, in the course for the patient. I have also personally directed the plan of care. 22 yrs old female with acute gall stone cholycystitis, elevated LFT,MRCP showed stone in CBD. Continue IV fluid, IV antibiotics and suppotive care.Patient is scheduled for ERCP in the morning, will eventually need cholycystectomy. Management plan was discussed in detail with patient. Education was provided.
[2017-07-14] MEDS ORDERED: Piperacillin/Tazobact 3.375 gm 100 ML IVPB SCH (12:00)
[2017-07-14] MEDS: Sodium Chloride 0.9% 1,000 ML IV SCH ×2 (12:07→21:54)
[2017-07-14] MEDS ORDERED: metroNIDAZOLE IV 500 mg/100 ml 500 MG/100 ML BAG IVPB SCH (14:00)
[2017-07-14] MEDS: metroNIDAZOLE IV 500 mg/100 ml 500 MG/100 ML BAG IVPB SCH ×2 (14:50→21:54)
--- NOTE | 2017-07-14 15:46 | MRI ---
PROCEDURE: Magnetic Resonance Cholangiopancreatography HISTORY: Rule out CBD stone COMPARISON: None available. TECHNIQUE: Multiplanar, multisequence MR images of the abdomen were obtained, including heavily T2 weighted MRCP images of the biliary system. Rotating maximum intensity projection images of the biliary system were generated. FINDINGS: MRCP: There is a 5 mm stone in the distal common duct. The common duct is dilated with a diameter of 8 mm. Multiple gallstones are seen. LIVER: Unremarkable. GALLBLADDER: Unremarkable. SPLEEN: Unremarkable. PANCREAS: Unremarkable. ADRENALS: Unremarkable. KIDNEYS: Unremarkable. AORTA: No aneurysm. ASCITES: None. OTHER FINDINGS: None. IMPRESSION: 5 mm stone in the distal common bile duct. Multiple gallstones
[2017-07-14 16:14] VITALS: BMI 23.4
[2017-07-14 17:15] LABS: HEPATITIS B SURFACE AG Negative (NEGATIVE)
[2017-07-14 17:21] LABS: HEPATITIS A IGM NEGATIVE (NEGATIVE); HEPATITIS B CORE AB NEGATIVE (NEGATIVE)
[2017-07-14 17:33] LABS: HEPATITIS C ANTIBODY NEGATIVE (NEGATIVE)
--- NOTE | 2017-07-14 18:29 | CP.PCM.CON ---
<Donaldo Stephens - Last Filed: 07/14/17 18:46> History of Present Illness - History of Present Illness History of Present Illness: PGY4 Initial GI consult Kacey Elliott is a 22F w/ no sig PMHx who presents to the ER with 3 days of worsening epigastric pain. She also complains of associated nausea and vomiting. The pain has become persistent and localized to the epigastric area with radiation to the RUQ. She denies any alleviating factors. She notes that meals are an exacerbating factors. She denies fever, chills, or diaphoresis. She denies any hematochezia, melena, hematemesis or coffee-ground emesis. She admits to a similar episode of severe abdominal pain a week ago that resolved spontaneously and lasted less than 30 minutes. Abd ultrasound revealed cholelithiasis, cholecystitis, and probable CBD stone. A MRCP revealed a 5mm stone at the distal CBD stone. PMH: Denies PSH: Denies FH: Reviewed; Denies any GI malignancies Social: Smokes 3 cigarettes for the past 3 months, drinks on the weekends (1-2 beers daily on wednesday, wednesday and wednesday), works at [employer] Hx: denies any colonoscopy or endoscopy Past Patient History - Past Social History Smoking Status: Light Smoker < 10 Cigarettes Daily - NEUROLOGICAL Hx Migraine: Yes - HEENT Hx Epistaxis: Yes - INTEGUMENTARY Hx Psoriasis: Yes - MUSCULOSKELETAL/RHEUMATOLOGICAL Hx Falls: No - PSYCHIATRIC Hx Substance Use: No - SURGICAL HISTORY Hx Surgeries: No - ANESTHESIA Hx Anesthesia: No Meds Allergies/Adverse Reactions: Allergies Allergy/AdvReac Type Severity Reaction Status Date / Time No Known Allergies Allergy Verified 07/14/17 05:35 - Medications Medications: Current Medications Sodium Chloride (Sodium Chloride 0.9%) 1,000 mls @ 100 mls/hr IV .Q10H [facility] Last Admin: 07/14/17 12:07 Dose: 100 mls/hr Metronidazole (Flagyl) 500 mg in 100 mls @ 100 mls/hr IVPB Q8 [facility] PRN Reason: Protocol Last Admin: 07/14/17 14:50 Dose: 100 mls/hr Ceftriaxone Sodium (Rocephin 2 Gm Ivpb) 2 gm in 100 mls @ 100 mls/hr IVPB DAILY [facility] PRN Reason: Protocol Morphine Sulfate (Morphine) 2 mg IVP Q4H PRN PRN Reason: Pain, moderate (4-7) Ondansetron HCl (Zofran Inj) 4 mg IVP Q6H PRN PRN Reason: Nausea/Vomiting Pantoprazole Sodium (Protonix Inj) 40 mg IVP DAILY [facility] Last Admin: 07/14/17 12:07 Dose: 40 mg Physical Exam - Constitutional Appears: Well, No Acute Distress - Head Exam Head Exam: ATRAUMATIC, NORMOCEPHALIC - Eye Exam Eye Exam: Normal appearance Pupil Exam: NORMAL ACCOMODATION - ENT Exam ENT Exam: Mucous Membranes Moist, Normal Exam - Neck Exam Neck exam: Positive for: Normal Inspection - Respiratory Exam Respiratory Exam: Clear to Auscultation Bilateral, NORMAL BREATHING PATTERN. absent: Rales, Rhonchi, Wheezes, Respiratory Distress - Cardiovascular Exam Cardiovascular Exam: REGULAR RHYTHM, +S1, +S2 - GI/Abdominal Exam GI & Abdominal Exam: Normal Bowel Sounds, Soft, Tenderness (RUQ and epigastric) . absent: Firm, Organomegaly, Pulsatile Mass, Rebound, Rigid - Extremities Exam Extremities exam: Negative for: joint swelling, pedal edema - Neurological Exam Neurological exam: Alert, Oriented x3 - Psychiatric Exam Psychiatric exam: Normal Affect, Normal Mood - Skin Skin Exam: Dry, Intact, Normal Color, Warm Results - Vital Signs Recent Vital Signs: Last Vital Signs Temp 98.3 F 07/14/17 14:00 Pulse 59 L 07/14/17 14:00 Resp 20 07/14/17 14:00 BP 96/61 L 07/14/17 14:00 Pulse Ox 99 07/14/17 14:00 - Labs Result Diagrams: 07/14/17 05:33 07/14/17 05:33 Labs: Laboratory Results - last 24 hr 07/14/17 08:55 Hepatitis A IgM Ab Negative Hep Bs Antigen Negative Hep B Core IgM Ab Negative Hepatitis C Antibody Negative Assessment & Plan - Assessment and Plan (Free Text) Assessment: Kacey Elliott is a 22F w/ no sig PMHx who presented with abd pain. MRCP revealed distal CBD Stone Acute Cholecystitis Choledocholithiasis Cholelithiasis Transaminemia likely 2/2 above Plan: -r/o viral and autoimmune etiologies, will send serologies and markers -MRCP reviewed and + 5mm distal stone -recommend ERCP tomorrow around noon -NPO after midnight -can be on clears for now -pain management as per primary team -surgery on board -spoke with surgery resident, plan for surgery post ERCP D/W Dr. Mejia <Crystal Mejia - Last Filed: 07/14/17 21:54> Meds - Medications Medications: Current Medications Hydromorphone HCl (Dilaudid) 0.5 mg IVP Q4H PRN PRN Reason: Pain, moderate (4-7) Sodium Chloride (Sodium Chloride 0.9%) 1,000 mls @ 100 mls/hr IV .Q10H [facility] Last Admin: 07/14/17 12:07 Dose: 100 mls/hr Metronidazole (Flagyl) 500 mg in 100 mls @ 100 mls/hr IVPB Q8 [facility] PRN Reason: Protocol Last Admin: 07/14/17 14:50 Dose: 100 mls/hr Ceftriaxone Sodium (Rocephin 2 Gm Ivpb) 2 gm in 100 mls @ 100 mls/hr IVPB DAILY [facility] PRN Reason: Protocol Ondansetron HCl (Zofran Inj) 4 mg IVP Q6H PRN PRN Reason: Nausea/Vomiting Pantoprazole Sodium (Protonix Inj) 40 mg IVP DAILY [facility] Last Admin: 07/14/17 12:07 Dose: 40 mg Results - Vital Signs Recent Vital Signs: Last Vital Signs Temp 98.3 F 07/14/17 14:00 Pulse 59 L 07/14/17 14:00 Resp 20 07/14/17 14:00 BP 96/61 L 07/14/17 14:00 Pulse Ox 99 07/14/17 14:00 - Labs Result Diagrams: 07/14/17 05:33 07/14/17 05:33 Labs: Laboratory Results - last 24 hr 07/14/17 08:55 Hepatitis A IgM Ab Negative Hep Bs Antigen Negative Hep B Core IgM Ab Negative Hepatitis C Antibody Negative Attending/Attestation - Attestation I have personally seen and examined this patient.: Yes I have fully participated in the care of the patient.: Yes I have reviewed all pertinent clinical information: Yes Notes (Text): 07/14/17 21:51 This is a 22 yr old F with no significant PMHx who presented with abdominal pain in setting of acute cholecystitis. MRCP revealed distal CBD Stone- for ERCP in am. NPO past midnight. Clear liquid diet today. Pain management as per primary team
[2017-07-14] MEDS ORDERED: Morphine 2 mg/2 mL syringe IVP ONE (21:26)
[2017-07-14] MEDS: HYDROmorphone 0.5 mg/0.5 ml ISec IVP PRN (22:16)
[2017-07-15] MEDS: metroNIDAZOLE IV 500 mg/100 ml 500 MG/100 ML BAG IVPB SCH ×3 (05:53→22:29)
--- NOTE | 2017-07-15 06:45 | CP.PCM.PN ---
Subjective - Date & Time of Evaluation Date of Evaluation: 07/15/17 Time of Evaluation: 07:05 - Subjective Subjective: General Surgery: Dr Leyva Pt S&E. Overnight pt continued to have pain, worsened by morphine administration. Switched to dilaudid 0.5 Q4H with resolution. Single episode of emesis around 4AM, non-billious non bloody. Pt reports she is feeling better now. Pt aware of plan of care moving forward. ERCP today. Objective - Vital Signs/Intake and Output Vital Signs (last 24 hours): Temp Pulse Resp BP Pulse Ox 98.1 F 72 20 118/72 98 07/15/17 00:00 07/15/17 00:00 07/15/17 00:00 07/15/17 00:00 07/15/17 00:00 Intake and Output: 07/14/17 07/15/17 18:59 06:59 Intake Total 1200 Balance 1200 - Medications Medications: Current Medications Hydromorphone HCl (Dilaudid) 0.5 mg IVP Q4H PRN PRN Reason: Pain, moderate (4-7) Last Admin: 07/14/17 22:16 Dose: 0.5 mg Sodium Chloride (Sodium Chloride 0.9%) 1,000 mls @ 100 mls/hr IV .Q10H [facility] Last Admin: 07/14/17 21:54 Dose: 100 mls/hr Metronidazole (Flagyl) 500 mg in 100 mls @ 100 mls/hr IVPB Q8 [facility] PRN Reason: Protocol Last Admin: 07/15/17 05:53 Dose: 100 mls/hr Ceftriaxone Sodium (Rocephin 2 Gm Ivpb) 2 gm in 100 mls @ 100 mls/hr IVPB DAILY [facility] PRN Reason: Protocol Ondansetron HCl (Zofran Inj) 4 mg IVP Q6H PRN PRN Reason: Nausea/Vomiting Last Admin: 07/14/17 23:44 Dose: 4 mg Pantoprazole Sodium (Protonix Inj) 40 mg IVP DAILY [facility] Last Admin: 07/14/17 12:07 Dose: 40 mg - Labs Labs: PT 11.9 SECONDS (9.4-12.5) 07/14/17 05:33 INR 1.03 (0.93-1.08) 07/14/17 05:33 APTT 27.1 Seconds (25.1-36.5) 07/14/17 05:33 - Constitutional Appears: Non-toxic, No Acute Distress - Eye Exam Eye Exam: Normal appearance - ENT Exam ENT Exam: Mucous Membranes Moist, Normal Exam - Respiratory Exam Respiratory Exam: absent: Accessory Muscle Use, Respiratory Distress - Cardiovascular Exam Cardiovascular Exam: REGULAR RHYTHM. absent: Tachycardia - GI/Abdominal Exam GI & Abdominal Exam: Soft, Tenderness (epigastric and RUQ). absent: Distended, Firm, Guarding, Rigid, Hernia, Mass, Rebound - Extremities Exam Extremities Exam: absent: Pedal Edema - Neurological Exam Neurological Exam: Alert, Awake, Oriented x3 - Psychiatric Exam Psychiatric exam: Normal Affect, Normal Mood - Skin Skin Exam: Normal Color, Warm Assessment and Plan - Assessment and Plan (Free Text) Assessment: 22F with choledocholithiasis Plan: maintain NPO plan for ERCP this afternoon lap marcos tomorrow cont abx f/u labs OK with CLD after ERCP if ok with GI. will d/w Dr Gordon Bautista, PGY3
[2017-07-15 07:11] LABS: BASO # 0.03 K/mm3 (0.0-2.0); BASO % 0.6 % (0.0-3.0); EOS # 0.2 (0.0-0.7); EOS % 4.8 % (1.5-5.0); GRAN # 2.75 (1.4-6.5); GRAN % 57.8 % (50.0-68.0); LYMPH # 1.4 (1.2-3.4); LYMPH % 28.6 % (22.0-35.0); MEAN CORPUSCULAR HEMOGLOBIN 29.2 pg (25.0-35.0); MEAN CORPUSCULAR HGB CONC 33.2 g/dl (31.0-37.0); MEAN PLATELET VOLUME 10.8 fl (7.0-11.0); MONO # 0.4 (0.1-0.6); MONO % 8.2 % (1.0-6.0); RBC 3.42 10^6/uL (3.5-6.1); RED CELL DISTRIBUTION WIDTH 13.8 % (11.5-14.5); WHITE BLOOD COUNT 4.8 10^3/ul (4.5-11.0)
[2017-07-15 07:15] LABS: ALB/GLOB RATIO 1.1 (1.1-1.8); ALBUMIN 3.2 g/dL (3.0-4.8); ALT/SGPT 488 U/L (7-56); AST/SGOT 304 U/L (14-36); BLOOD UREA NITROGEN 3 mg/dL (7-21); GFR AFRICAN-AMERICAN > 60; GFR NON-AFRICAN AMERICAN > 60
--- NOTE | 2017-07-15 08:49 | CP.PCM.PN ---
<Wanda Valdez - Last Filed: 07/15/17 11:10> Subjective - Date & Time of Evaluation Date of Evaluation: 07/15/17 Time of Evaluation: 06:50 - Subjective Subjective: Patient did not tolerate clear liquid diet last evening. Patient still has epigastric pain that is well controlled on her current regiment. Patient denies fever, chills, dysuria, or diarrhea. Objective - Vital Signs/Intake and Output Vital Signs (last 24 hours): Temp Pulse Resp BP Pulse Ox 98.4 F 61 20 88/48 L 99 07/15/17 06:00 07/15/17 06:00 07/15/17 06:00 07/15/17 06:00 07/15/17 06:00 Intake and Output: 07/15/17 07/15/17 06:59 18:59 Intake Total 1200 Balance 1200 - Medications Medications: Current Medications Hydromorphone HCl (Dilaudid) 0.5 mg IVP Q4H PRN PRN Reason: Pain, moderate (4-7) Last Admin: 07/14/17 22:16 Dose: 0.5 mg Sodium Chloride (Sodium Chloride 0.9%) 1,000 mls @ 100 mls/hr IV .Q10H [facility] Last Admin: 07/14/17 21:54 Dose: 100 mls/hr Metronidazole (Flagyl) 500 mg in 100 mls @ 100 mls/hr IVPB Q8 [facility] PRN Reason: Protocol Last Admin: 07/15/17 05:53 Dose: 100 mls/hr Ceftriaxone Sodium (Rocephin 2 Gm Ivpb) 2 gm in 100 mls @ 100 mls/hr IVPB DAILY [facility] PRN Reason: Protocol Ondansetron HCl (Zofran Inj) 4 mg IVP Q6H PRN PRN Reason: Nausea/Vomiting Last Admin: 07/14/17 23:44 Dose: 4 mg Pantoprazole Sodium (Protonix Inj) 40 mg IVP DAILY [facility] Last Admin: 07/14/17 12:07 Dose: 40 mg - Labs Labs: 07/15/17 06:30 07/15/17 06:30 PT 11.9 SECONDS (9.4-12.5) 07/14/17 05:33 INR 1.03 (0.93-1.08) 07/14/17 05:33 APTT 27.1 Seconds (25.1-36.5) 07/14/17 05:33 - Constitutional Appears: Non-toxic, No Acute Distress - Head Exam Head Exam: ATRAUMATIC, NORMOCEPHALIC - Eye Exam Eye Exam: EOMI, Normal appearance - ENT Exam ENT Exam: Mucous Membranes Moist - Neck Exam Neck Exam: Normal Inspection - Respiratory Exam Respiratory Exam: Clear to Ausculation Bilateral, NORMAL BREATHING PATTERN. absent: Accessory Muscle Use - Cardiovascular Exam Cardiovascular Exam: RRR, +S1, +S2 - GI/Abdominal Exam GI & Abdominal Exam: Tenderness. absent: Guarding, Rebound Additional comments: positive angelo's sign - Extremities Exam Extremities Exam: Normal Inspection. absent: Calf Tenderness - Back Exam Back Exam: NORMAL INSPECTION. absent: CVA tenderness (L), CVA tenderness (R) - Neurological Exam Neurological Exam: Alert, Awake, Oriented x3 - Psychiatric Exam Psychiatric exam: Normal Affect, Normal Mood - Skin Skin Exam: Dry, Intact, Normal Color, Warm Assessment and Plan - Assessment and Plan (Free Text) Assessment: Gall stone cholecystitis - MRCP shows 5 mm in distal CBD - GI to perform ERCP today with patient resuming clear liquid diet as tolerated - Surgery to perform cholecystectomy tomorrow and patient NPO after midnight - Continue with Ceftriaxone and Metronidazole - Zofran 4 mg q4h - Hydromorphone 0.5 q4h PRN - NS 150 ml/hr 2) GI/DVT prophylaxis - Protonix 40 mg Daily - SCD Case reviewed and discussed with Dr. Gracia <Cas Gracia - Last Filed: 07/15/17 15:32> Objective - Vital Signs/Intake and Output Vital Signs (last 24 hours): Temp Pulse Resp BP Pulse Ox 97.8 F 82 18 120/62 98 07/15/17 13:07 07/15/17 13:07 07/15/17 13:07 07/15/17 13:07 07/15/17 14:22 Intake and Output: 07/15/17 07/15/17 06:59 18:59 Intake Total 1200 0 Balance 1200 0 - Medications Medications: Current Medications Hydromorphone HCl (Dilaudid) 0.5 mg IVP Q4H PRN PRN Reason: Pain, moderate (4-7) Last Admin: 07/15/17 10:15 Dose: 0.5 mg Metronidazole (Flagyl) 500 mg in 100 mls @ 100 mls/hr IVPB Q8 [facility] PRN Reason: Protocol Last Admin: 07/15/17 05:53 Dose: 100 mls/hr Ceftriaxone Sodium (Rocephin 2 Gm Ivpb) 2 gm in 100 mls @ 100 mls/hr IVPB DAILY [facility] PRN Reason: Protocol Last Admin: 07/15/17 10:27 Dose: 100 mls/hr Sodium Chloride (Sodium Chloride 0.9%) 1,000 mls @ 150 mls/hr IV .Q6H40M [facility] Sodium Chloride (Sodium Chloride 0.9%) 1,000 mls @ 75 mls/hr IV .[id number] [facility] Stop: 07/15/17 16:16 Ondansetron HCl (Zofran Inj) 4 mg IVP Q6H PRN PRN Reason: Nausea/Vomiting Last Admin: 07/14/17 23:44 Dose: 4 mg Pantoprazole Sodium (Protonix Inj) 40 mg IVP DAILY [facility] Last Admin: 07/15/17 10:26 Dose: 40 mg - Labs Labs: 07/15/17 06:30 07/15/17 06:30 PT 11.9 SECONDS (9.4-12.5) 07/14/17 05:33 INR 1.03 (0.93-1.08) 07/14/17 05:33 APTT 27.1 Seconds (25.1-36.5) 07/14/17 05:33 Attending/Attestation - Attestation I have personally seen and examined this patient.: Yes I have fully participated in the care of the patient.: Yes I have reviewed all pertinent clinical information, including history, physical exam and plan: Yes Notes (Text): 07/15/17 15:31 Medical record note made by the resident after discussion with my direction and input after the patient was personally seen and examined by me. I have reviewed the chart and agree that the record accurately reflects by personal performance of the history, physical exam, data review, and medical decision-making, in the course for the patient. I have also personally directed the plan of care. 22 yrs old female with acute gall stone cholycystitis, elevated LFT,MRCP showed stone in CBD, started on IV fluid, IV antibiotics and suppotive care.Patient underwent ERCP and removal of stone today.She is scheduled for cholycystectomy tomorrow by surgery. Management plan was discussed in detail with patient. Education was provided.
[2017-07-15] MEDS ORDERED: cefTRIAXone 1 gm 1 GM/100 ML BAG IVPB SCH (10:00)
[2017-07-15] MEDS: HYDROmorphone 0.5 mg/0.5 ml ISec IVP PRN (10:15)
[2017-07-15] MEDS: cefTRIAXone 2 GM IN NS 2 GM/100 ML BAG IVPB SCH (10:27)
[2017-07-15] MEDS ORDERED: Iohexol 240 (50 ml) ONE (10:29)
[2017-07-15] MEDS ORDERED: Indomethacin 50 MG Suppository PR ONE (13:18)
[2017-07-15] MEDS ORDERED: Sodium Chloride 0.9% 1,000 ML IV SCH (14:15)
[2017-07-15] MEDS ORDERED: Propofol 10 mg/ml Inj (20 ML) ONE (14:43)
[2017-07-15] MEDS ORDERED: Midazolam 2 MG/2 ML VIAL ONE (14:44)
--- NOTE | 2017-07-15 17:38 | RAD ---
PROCEDURE: Fluoroscopy up to 1 hr. HISTORY: ERCP COMPARISON: None TECHNIQUE: Standard protocol for this study/examination. FINDINGS: Total fluoroscopic time (continuous mode) utilized during the procedure 114.4 (seconds). Total exam DLP: (mGy) 4.505 IMPRESSION: Less than 1 hr fluoroscopic time utilized during performance of the procedure.
[2017-07-15] MEDS: Sodium Chloride 0.9% 1,000 ML IV SCH (23:17)
[2017-07-16] MEDS: Sodium Chloride 0.9% 1,000 ML IV SCH ×2 (02:25→16:39)
[2017-07-16] MEDS: metroNIDAZOLE IV 500 mg/100 ml 500 MG/100 ML BAG IVPB SCH ×3 (05:39→21:31)
--- NOTE | 2017-07-16 06:29 | CP.PCM.PN ---
<Wanda Valdez - Last Filed: 07/16/17 16:03> Subjective - Date & Time of Evaluation Date of Evaluation: 07/16/17 Time of Evaluation: 07:00 - Subjective Subjective: PGY-1 Patient seen and examined at bedside. Patient reports tolerating clear liquid diet yesterday after procedure. Patient denies fever, chills, or diarrhea. Patient's pain has improved significantly in the interim with current analgesic regiment. Objective - Vital Signs/Intake and Output Vital Signs (last 24 hours): Temp Pulse Resp BP Pulse Ox 98.8 F 61 20 101/52 L 98 07/15/17 22:00 07/15/17 22:00 07/15/17 22:00 07/15/17 22:00 07/15/17 22:00 Intake and Output: 07/15/17 07/16/17 18:59 06:59 Intake Total 75 1800 Balance 75 1800 - Medications Medications: Current Medications Hydromorphone HCl (Dilaudid) 0.5 mg IVP Q4H PRN PRN Reason: Pain, moderate (4-7) Last Admin: 07/15/17 10:15 Dose: 0.5 mg Metronidazole (Flagyl) 500 mg in 100 mls @ 100 mls/hr IVPB Q8 [facility] PRN Reason: Protocol Last Admin: 07/16/17 05:39 Dose: 100 mls/hr Ceftriaxone Sodium (Rocephin 2 Gm Ivpb) 2 gm in 100 mls @ 100 mls/hr IVPB DAILY [facility] PRN Reason: Protocol Last Admin: 07/15/17 10:27 Dose: 100 mls/hr Sodium Chloride (Sodium Chloride 0.9%) 1,000 mls @ 150 mls/hr IV .Q6H40M [facility] Last Admin: 07/16/17 02:25 Dose: 150 mls/hr Ondansetron HCl (Zofran Inj) 4 mg IVP Q6H PRN PRN Reason: Nausea/Vomiting Last Admin: 07/14/17 23:44 Dose: 4 mg Pantoprazole Sodium (Protonix Inj) 40 mg IVP DAILY [facility] Last Admin: 07/15/17 10:26 Dose: 40 mg - Labs Labs: 07/15/17 06:30 07/15/17 06:30 PT 11.9 SECONDS (9.4-12.5) 07/14/17 05:33 INR 1.03 (0.93-1.08) 07/14/17 05:33 APTT 27.1 Seconds (25.1-36.5) 07/14/17 05:33 - Constitutional Appears: Non-toxic, No Acute Distress - Head Exam Head Exam: ATRAUMATIC - Eye Exam Eye Exam: EOMI, Normal appearance - ENT Exam ENT Exam: Mucous Membranes Moist - Neck Exam Neck Exam: Normal Inspection - Respiratory Exam Respiratory Exam: Clear to Ausculation Bilateral, NORMAL BREATHING PATTERN. absent: Accessory Muscle Use Assessment and Plan - Assessment and Plan (Free Text) Assessment: 22 year old female who presented with RUQ pain, nausea and vomiting who was found to have acute gallstone cholecystitis. Currently, pateint is s/p ERCP with sphincterotomy and stone extraction with PD stent placed and s/p laparascopic cholecystecomy. 1) Gall stone cholecystitis - s/p ERCP and cholecystectomy - Ceftriaxone and Metronidazole - Zofran 4 mg q4h - Hydromorphone 0.5 q4h PRN - Oxycodone 5 mg q4h PRN - NS 100 ml/hr - CLD tonight for dinner and ADAT - ISS - OOB to chair 2) GI/DVT prophylaxis - Protonix 40 mg Daily - SCD Case reviewed and discussed with Dr. Gracia <Cas Gracia - Last Filed: 07/17/17 15:06> Objective - Vital Signs/Intake and Output Vital Signs (last 24 hours): Temp Pulse Resp BP Pulse Ox 98.2 F 63 20 104/64 99 07/17/17 08:03 07/17/17 08:03 07/17/17 08:03 07/17/17 08:03 07/17/17 08:03 Intake and Output: 07/17/17 07/17/17 06:59 18:59 Intake Total 550 Balance 550 - Labs Labs: 07/16/17 06:45 07/16/17 06:45 PT 11.9 SECONDS (9.4-12.5) 07/14/17 05:33 INR 1.03 (0.93-1.08) 07/14/17 05:33 APTT 27.1 Seconds (25.1-36.5) 07/14/17 05:33 Attending/Attestation - Attestation I have personally seen and examined this patient.: Yes I have fully participated in the care of the patient.: Yes I have reviewed all pertinent clinical information, including history, physical exam and plan: Yes Notes (Text): 07/17/17 15:03 Medical record note made by the resident after discussion with my direction and input after the patient was personally seen and examined by me. I have reviewed the chart and agree that the record accurately reflects by personal performance of the history, physical exam, data review, and medical decision-making, in the course for the patient. I have also personally directed the plan of care. 22 yrs old female was admitted with acute gall stone cholycystitis, elevated LFT.She underwent ,MRCP showed stone in CBD followed by ERCP and removal of stone .She is scheduled for cholycystectomy today by surgery. Management plan was discussed in detail with patient. Education was provided.
--- NOTE | 2017-07-16 07:13 | CP.PCM.PN ---
<Donaldo Stephens - Last Filed: 07/16/17 08:25> Subjective - Date & Time of Evaluation Date of Evaluation: 07/16/17 Time of Evaluation: 06:50 - Subjective Subjective: PGY4 GI Follow-up Pt seen and examined bedside Denies any abd pain tolerated clears yesterday +BM No overnight events ROS: 12 point ROS conducted, neg other than above Objective - Vital Signs/Intake and Output Vital Signs (last 24 hours): Temp Pulse Resp BP Pulse Ox 98.8 F 61 20 101/52 L 98 07/15/17 22:00 07/15/17 22:00 07/15/17 22:00 07/15/17 22:00 07/15/17 22:00 Intake and Output: 07/16/17 07/16/17 06:59 18:59 Intake Total 1800 Balance 1800 - Medications Medications: Current Medications Hydromorphone HCl (Dilaudid) 0.5 mg IVP Q4H PRN PRN Reason: Pain, moderate (4-7) Last Admin: 07/15/17 10:15 Dose: 0.5 mg Metronidazole (Flagyl) 500 mg in 100 mls @ 100 mls/hr IVPB Q8 [facility] PRN Reason: Protocol Last Admin: 07/16/17 05:39 Dose: 100 mls/hr Ceftriaxone Sodium (Rocephin 2 Gm Ivpb) 2 gm in 100 mls @ 100 mls/hr IVPB DAILY [facility] PRN Reason: Protocol Last Admin: 07/15/17 10:27 Dose: 100 mls/hr Sodium Chloride (Sodium Chloride 0.9%) 1,000 mls @ 150 mls/hr IV .Q6H40M [facility] Last Admin: 07/16/17 02:25 Dose: 150 mls/hr Ondansetron HCl (Zofran Inj) 4 mg IVP Q6H PRN PRN Reason: Nausea/Vomiting Last Admin: 07/14/17 23:44 Dose: 4 mg Pantoprazole Sodium (Protonix Inj) 40 mg IVP DAILY [facility] Last Admin: 07/15/17 10:26 Dose: 40 mg - Labs Labs: 07/15/17 06:30 07/15/17 06:30 PT 11.9 SECONDS (9.4-12.5) 07/14/17 05:33 INR 1.03 (0.93-1.08) 07/14/17 05:33 APTT 27.1 Seconds (25.1-36.5) 07/14/17 05:33 - Constitutional Appears: Well, No Acute Distress - Head Exam Head Exam: ATRAUMATIC, NORMOCEPHALIC - Eye Exam Eye Exam: Normal appearance - ENT Exam ENT Exam: Mucous Membranes Moist, Normal Exam - Neck Exam Neck Exam: Normal Inspection - Respiratory Exam Respiratory Exam: Clear to Ausculation Bilateral, NORMAL BREATHING PATTERN. absent: Rales, Rhonchi, Wheezes, Respiratory Distress - Cardiovascular Exam Cardiovascular Exam: REGULAR RHYTHM, +S1, +S2 - GI/Abdominal Exam GI & Abdominal Exam: Soft, Normal Bowel Sounds. absent: Distended, Guarding, Rigid, Tenderness, Mass, Organomegaly, Rebound - Extremities Exam Extremities Exam: absent: Joint Swelling, Pedal Edema - Neurological Exam Neurological Exam: Alert, Awake, Oriented x3 - Psychiatric Exam Psychiatric exam: Normal Affect, Normal Mood - Skin Skin Exam: Dry, Intact, Normal Color, Warm Assessment and Plan - Assessment and Plan (Free Text) Assessment: Kacey Elliott is a 22F w/ no sig PMHx who presented with abd pain. MRCP revealed distal CBD Stone; s/p ERCP POD#1 which revealed sludge, debris and pus and PD stent placement Acute Cholecystitis Choledocholithiasis Cholelithiasis Transaminemia likely 2/2 above Plan: -no signs of pancreatitos -Set for OR today for lap marcos -continue abx -no further intervention from GI standpoint -recommend xray of the abd in 2 weeks to confirm passage of PD stent D/W Dr. Collins <Facundo Collins - Last Filed: 07/16/17 09:22> Objective - Vital Signs/Intake and Output Vital Signs (last 24 hours): Temp Pulse Resp BP Pulse Ox 98.3 F 59 L 18 97/50 L 99 07/16/17 08:07 07/16/17 08:07 07/16/17 08:07 07/16/17 08:07 07/16/17 08:07 Intake and Output: 07/16/17 07/16/17 06:59 18:59 Intake Total 1800 Balance 1800 - Medications Medications: Current Medications Hydromorphone HCl (Dilaudid) 0.5 mg IVP Q4H PRN PRN Reason: Pain, moderate (4-7) Last Admin: 07/15/17 10:15 Dose: 0.5 mg Metronidazole (Flagyl) 500 mg in 100 mls @ 100 mls/hr IVPB Q8 [facility] PRN Reason: Protocol Last Admin: 07/16/17 05:39 Dose: 100 mls/hr Ceftriaxone Sodium (Rocephin 2 Gm Ivpb) 2 gm in 100 mls @ 100 mls/hr IVPB DAILY [facility] PRN Reason: Protocol Last Admin: 07/15/17 10:27 Dose: 100 mls/hr Sodium Chloride (Sodium Chloride 0.9%) 1,000 mls @ 150 mls/hr IV .Q6H40M [facility] Last Admin: 07/16/17 02:25 Dose: 150 mls/hr Ondansetron HCl (Zofran Inj) 4 mg IVP Q6H PRN PRN Reason: Nausea/Vomiting Last Admin: 07/14/17 23:44 Dose: 4 mg Pantoprazole Sodium (Protonix Inj) 40 mg IVP DAILY [facility] Last Admin: 07/15/17 10:26 Dose: 40 mg - Labs Labs: 07/16/17 06:45 07/16/17 06:45 PT 11.9 SECONDS (9.4-12.5) 07/14/17 05:33 INR 1.03 (0.93-1.08) 07/14/17 05:33 APTT 27.1 Seconds (25.1-36.5) 07/14/17 05:33 Attending/Attestation - Attestation I have personally seen and examined this patient.: Yes I have fully participated in the care of the patient.: Yes I have reviewed all pertinent clinical information, including history, physical exam and plan: Yes Notes (Text): 07/16/17 09:19 I have seen and examined patient with GI fellow. No acute events overnight, she is seen resting in bed comfortably. She denies abdominal pain, nausea, vomiting, fever/chills. Tolerating PO liquid diet without difficulty. Acute cholecystitis Choledocholithiasis s/p ERCP with sphincterotomy and PD stent placement - NPO - LFTs stable, continue to monitor - Patient planned for cholecystectomy today, follow up surgical recommendations - Patient should have outpatient abdominal XR within 2 weeks to ensure passage of PD stent - No further planned GI interventions, will sign off case. Please reconsult as necessary, thank you.
[2017-07-16 07:25] LABS: BASO # 0.01 K/mm3 (0.0-2.0); BASO % 0.1 % (0.0-3.0); EOS # 0.1 (0.0-0.7); EOS % 1.3 % (1.5-5.0); GRAN # 5.18 (1.4-6.5); GRAN % 73.6 % (50.0-68.0); HEMOGLOBIN 10.5 g/dL (12.0-16.0); LYMPH # 1.3 (1.2-3.4); MEAN CELL VOLUME 86.5 fl (80.0-105.0); MEAN CORPUSCULAR HGB CONC 33.5 g/dl (31.0-37.0); MONO # 0.4 (0.1-0.6); RBC 3.62 10^6/uL (3.5-6.1); RED CELL DISTRIBUTION WIDTH 13.4 % (11.5-14.5)
[2017-07-16 07:54] LABS: ALB/GLOB RATIO 1.2 (1.1-1.8); ALBUMIN 3.4 g/dL (3.0-4.8); ALT/SGPT 360 U/L (7-56); AST/SGOT 110 U/L (14-36); BLOOD UREA NITROGEN 6 mg/dL (7-21); CALCIUM 9.1 mg/dL (8.4-10.5); GFR AFRICAN-AMERICAN > 60; GFR NON-AFRICAN AMERICAN > 60
[2017-07-16] MEDS ORDERED: Sodium Chloride 0.9% 1,000 ML IV SCH (09:19)
[2017-07-16] MEDS: cefTRIAXone 2 GM IN NS 2 GM/100 ML BAG IVPB SCH (11:21)
[2017-07-16] MEDS ORDERED: Propofol 10 mg/ml Inj (20 ML) ONE (13:19)
[2017-07-16] MEDS ORDERED: Rocuronium 10 mg/ml (5 ml) ONE (13:19)
[2017-07-16] MEDS ORDERED: Midazolam 2 MG/2 ML VIAL ONE (13:19)
[2017-07-16] MEDS ORDERED: Desflurane Inhalation Anesthetic Liq (240 ml) ONE (13:33)
[2017-07-16] MEDS ORDERED: Neostigmine Methylsulfate 3mg/3ml Syringe IV ONE (15:18)
[2017-07-16] MEDS ORDERED: Glycopyrrolate 0.2 mg/ml (2ml vial) ONE (15:18)
--- NOTE | 2017-07-16 15:41 | PCM.SURG1 ---
Surgeon's Initial Post Op Note - Surgeon's Notes Surgeon: Dr Leyva Sludge Control Attendant: Dr Bautista PGY3, Dr Palma PGY2 Type of Anesthesia: General Endo Pre-Operative Diagnosis: acute cholecystitis. choledocholithiasis s/p ERCP Operative Findings: see report Post-Operative Diagnosis: acute cholecystitis Operation Performed: laparoscopic cholecystectomy Specimen/Specimens Removed: gallbladder Estimated Blood Loss: EBL {In ML}: 30 Blood Products Given: N/A Drains Used: No Drains Post-Op Condition: Good Date of Surgery/Procedure: 07/16/17 Time of Surgery/Procedure: 15:39
[2017-07-16] MEDS ORDERED: Oxycodone/Acetaminophen 5/325 mg Tab PO PRN (15:42)
[2017-07-16] MEDS ORDERED: HYDROmorphone 0.5 mg/0.5 ml ISec IVP PRN (15:44)
[2017-07-16] MEDS ORDERED: Lactated Ringer's 1,000 ML IV SCH (15:45)
[2017-07-16] MEDS ORDERED: HYDROmorphone 0.5 mg/0.5 ml ISec ONE ×2 (15:53→16:08)
[2017-07-16] MEDS: HYDROmorphone 0.5 mg/0.5 ml ISec IVP PRN ×3 (16:09→23:50)
[2017-07-16] MEDS: Oxycodone/Acetaminophen 5/325 mg Tab PO PRN (17:09)
[2017-07-17 04:44] VITALS: RESP 20; O2SAT 99
[2017-07-17] MEDS: metroNIDAZOLE IV 500 mg/100 ml 500 MG/100 ML BAG IVPB SCH (05:13)
[2017-07-17] MEDS: HYDROmorphone 0.5 mg/0.5 ml ISec IVP PRN (05:20)
[2017-07-17 08:04] VITALS: BP 104/64; PULSE 63; TEMP 98.2
[2017-07-17] MEDS: Oxycodone/Acetaminophen 5/325 mg Tab PO PRN (08:16)
--- NOTE | 2017-07-17 09:01 | CP.PCM.PN ---
Subjective - Date & Time of Evaluation Date of Evaluation: 07/17/17 Time of Evaluation: 08:57 - Subjective Subjective: Surgery: Dr. Leyva Patient doing well. Tolerated [facility] for dinner last night. Denies vomiting, some nausea. Denies f/c. Pain controlled. Objective - Vital Signs/Intake and Output Vital Signs (last 24 hours): Temp Pulse Resp BP Pulse Ox 98.2 F 63 20 104/64 99 07/17/17 08:03 07/17/17 08:03 07/17/17 08:03 07/17/17 08:03 07/17/17 08:03 Intake and Output: 07/17/17 07/17/17 06:59 18:59 Intake Total 550 Balance 550 - Medications Medications: Current Medications Metronidazole (Flagyl) 500 mg in 100 mls @ 100 mls/hr IVPB Q8 CHUCK PRN Reason: Protocol Last Admin: 07/17/17 05:13 Dose: 100 mls/hr Ceftriaxone Sodium (Rocephin 2 Gm Ivpb) 2 gm in 100 mls @ 100 mls/hr IVPB DAILY CHUCK PRN Reason: Protocol Last Admin: 07/16/17 11:21 Dose: 100 mls/hr Ondansetron HCl (Zofran Inj) 4 mg IVP Q6H PRN PRN Reason: Nausea/Vomiting Last Admin: 07/17/17 05:19 Dose: 4 mg Oxycodone/Acetaminophen (Percocet 5/325 Mg Tab) 1 tab PO Q4H PRN PRN Reason: Pain, Mild (1-3) Stop: 07/19/17 15:44 Last Admin: 07/17/17 08:16 Dose: 1 tab - Labs Labs: 07/16/17 06:45 07/16/17 06:45 PT 11.9 SECONDS (9.4-12.5) 07/14/17 05:33 INR 1.03 (0.93-1.08) 07/14/17 05:33 APTT 27.1 Seconds (25.1-36.5) 07/14/17 05:33 - Constitutional Appears: Non-toxic, No Acute Distress - Head Exam Head Exam: ATRAUMATIC, NORMOCEPHALIC - Eye Exam Eye Exam: EOMI, Normal appearance - ENT Exam ENT Exam: Mucous Membranes Moist - Respiratory Exam Respiratory Exam: NORMAL BREATHING PATTERN. absent: Respiratory Distress - Cardiovascular Exam Cardiovascular Exam: REGULAR RHYTHM. absent: Tachycardia - GI/Abdominal Exam GI & Abdominal Exam: Soft. absent: Distended, Tenderness Additional comments: dressing CDI - Neurological Exam Neurological Exam: Alert, Awake - Psychiatric Exam Psychiatric exam: Normal Affect, Normal Mood - Skin Skin Exam: Dry, Warm Assessment and Plan - Assessment and Plan (Free Text) Assessment: 22 y/o female s/p lap marcos POD1 Plan: -cont reg diet -clear for d/c from surgical standpoint -f/u with Dr. Leyva in 1-2 weeks -can shower, do not bathe or soak incisions -further recs per Dr. Leyva AKGorham PGY3
[2017-07-17] MEDS ORDERED: Menthol/Methyl Salicylate Ointment(1 oz) TOP PRN (10:32)
[2017-07-17] MEDS: cefTRIAXone 2 GM IN NS 2 GM/100 ML BAG IVPB SCH (11:05)
--- NOTE | 2017-07-17 19:27 | CP.PCM.DIS ---
<Wanda Valdez - Last Filed: 07/17/17 19:18> Provider - Provider Date of Admission: 07/14/17 08:43 Attending physician: Cas Gracia MD Consults: Dr. Gordon Corea Time Spent in preparation of Discharge (in minutes): 35 Diagnosis - Discharge Diagnosis (1) Cholecystitis Status: Acute Priority: High (2) Choledocholithiasis Status: Acute Priority: High (3) Transaminitis Status: Acute Priority: High Hospital Course - Lab Results Lab Results: Micro Results 07/14/17 08:55 Blood Blood Culture - Preliminary NO GROWTH AFTER 3 DAYS 07/14/17 08:55 Blood Blood Culture - Preliminary NO GROWTH AFTER 3 DAYS Most Recent Lab Values WBC 7.0 10^3/ul (4.5-11.0) D 07/16/17 06:45 RBC 3.62 10^6/uL (3.5-6.1) 07/16/17 06:45 Hgb 10.5 g/dL (12.0-16.0) L 07/16/17 06:45 Hct 31.3 % (36.0-48.0) L 07/16/17 06:45 MCV 86.5 fl (80.0-105.0) 07/16/17 06:45 MCH 29.0 pg (25.0-35.0) 07/16/17 06:45 MCHC 33.5 g/dl (31.0-37.0) 07/16/17 06:45 RDW 13.4 % (11.5-14.5) 07/16/17 06:45 Plt Count 350 10^3/uL (120.0-450.0) 07/16/17 06:45 MPV 11.0 fl (7.0-11.0) 07/16/17 06:45 Gran % 73.6 % (50.0-68.0) H 07/16/17 06:45 Lymph % (Auto) 19.0 % (22.0-35.0) L 07/16/17 06:45 [place] % (Auto) 6.0 % (1.0-6.0) 07/16/17 06:45 Eos % (Auto) 1.3 % (1.5-5.0) L 07/16/17 06:45 Baso % (Auto) 0.1 % (0.0-3.0) 07/16/17 06:45 Gran # 5.18 (1.4-6.5) 07/16/17 06:45 Lymph # (Auto) 1.3 (1.2-3.4) 07/16/17 06:45 [place] # (Auto) 0.4 (0.1-0.6) 07/16/17 06:45 Eos # (Auto) 0.1 (0.0-0.7) 07/16/17 06:45 Baso # (Auto) 0.01 K/mm3 (0.0-2.0) 07/16/17 06:45 PT 11.9 SECONDS (9.4-12.5) 07/14/17 05:33 INR 1.03 (0.93-1.08) 07/14/17 05:33 APTT 27.1 Seconds (25.1-36.5) 07/14/17 05:33 Sodium 139 mmol/L (132-148) 07/16/17 06:45 Potassium 3.6 mmol/L (3.6-5.0) 07/16/17 06:45 Chloride 105 mmol/L (98-107) 07/16/17 06:45 Carbon Dioxide 25 mmol/L (21-33) 07/16/17 06:45 Anion Gap 13 (10-20) 07/16/17 06:45 BUN 6 mg/dL (7-21) L 07/16/17 06:45 Creatinine 0.5 mg/dl (0.7-1.2) L 07/16/17 06:45 Est GFR ( Amer) > 60 07/16/17 06:45 Est GFR (Non-Af Amer) > 60 07/16/17 06:45 POC Glucose (mg/dL) 76 mg/dL (65-110) 07/17/17 11:40 Random Glucose 98 mg/dL (70-110) 07/16/17 06:45 Hemoglobin A1c 5.2 % (4.2-6.5) 07/14/17 05:33 Calcium 9.1 mg/dL (8.4-10.5) 07/16/17 06:45 Total Bilirubin 0.6 mg/dL (0.2-1.3) 07/16/17 06:45 AST 110 U/L (14-36) H D 07/16/17 06:45 ALT 360 U/L (7-56) H 07/16/17 06:45 Alkaline Phosphatase 175 U/L (38-126) H 07/16/17 06:45 Total Protein 6.2 g/dL (5.8-8.3) 07/16/17 06:45 Albumin 3.4 g/dL (3.0-4.8) 07/16/17 06:45 Globulin 2.8 gm/dL 07/16/17 06:45 Albumin/Globulin Ratio 1.2 (1.1-1.8) 07/16/17 06:45 Lipase 81 U/L (23-300) 07/14/17 05:33 Urine Color Yellow (YELLOW) 07/14/17 05:33 Urine Appearance Sl cloudy (CLEAR) 07/14/17 05:33 Urine pH 8.0 (4.7-8.0) 07/14/17 05:33 Ur Specific [place] 1.020 (1.005-1.035) 07/14/17 05:33 Urine Protein Trace mg/dL (<30 mg/dL) H 07/14/17 05:33 Urine Glucose (UA) Negative mg/dL (NEGATIVE) 07/14/17 05:33 Urine Ketones Negative mg/dL (NEGATIVE) 07/14/17 05:33 Urine Blood Trace-intact (NEGATIVE) H 07/14/17 05:33 Urine Nitrate Negative (NEGATIVE) 07/14/17 05:33 Urine Bilirubin Small (NEGATIVE) H 07/14/17 05:33 Urine Urobilinogen 4.0 E.U./dL (<1 E.U./dL) H 07/14/17 05:33 Ur Leukocyte Esterase Negative Enrico/uL (NEGATIVE) 07/14/17 05:33 Urine RBC 0 - 2 /hpf (0-2) 07/14/17 05:33 Urine WBC 0 - 2 /hpf (0-6) 07/14/17 05:33 Ur Epithelial Cells 4 - 5 /hpf (0-5) 07/14/17 05:33 Urine Bacteria Mod (NEG) 07/14/17 05:33 Urine HCG, Qual Negative (NEGATIVE) 07/16/17 12:24 Anti-Mitochondrial Ab Negative (Negative) 07/14/17 08:55 Smooth Muscle Ab Titer 1:40 Titer (< 1:20) H 07/14/17 08:55 Anti-Smooth Muscle Ab Positive (Negative) H 07/14/17 08:55 Liver/Kid Microsomes Ab <=20.0 U (<=20.0) 07/14/17 08:55 Hepatitis A IgM Ab Negative (NEGATIVE) 07/14/17 08:55 Hep Bs Antigen Negative (NEGATIVE) 07/14/17 08:55 Hep B Core IgM Ab Negative (NEGATIVE) 07/14/17 08:55 Hepatitis C Antibody Negative (NEGATIVE) 07/14/17 08:55 - Hospital Course Hospital Course: 22 year old female with no past medical history who presented with three days of worsening epigastric pain, nausea, vomiting who was found to have a acute gallstone cholecystitis. Patient was started on fluids, IV antibiotics, and kept NPO. MRCP confirmed stone in the distal CBD with dilatation. Patient underwent an ERCP with sphinterotomy and PD stent placement. The following day the patient was kept NPO after midnight and underwent a laparscopic cholecystectomy. Patient tolerated a regular diet fine, had no nausea, vomiting , or abdominal pain and was discharged with the below written instructions and recommendations. Patient will follow up with surgery, GI, and [facility] clinic as an outpatient. - Date & Time of H&P Date of H&P: 07/17/17 Time of H&P: 11:00 Discharge Exam - Head Exam Head Exam: ATRAUMATIC, NORMOCEPHALIC - Eye Exam Eye Exam: EOMI, Normal appearance - ENT Exam ENT Exam: Mucous Membranes Moist, Normal Oropharynx - Neck Exam Neck exam: Normal Inspection - Respiratory Exam Respiratory Exam: Clear to PA & Lateral, NORMAL BREATHING PATTERN. absent: Accessory Muscle Use - Cardiovascular Exam Cardiovascular Exam: RRR, +S1, +S2 - GI/Abdominal Exam GI & Abdominal Exam: Normal Bowel Sounds, Unremarkable. absent: Distended, Guarding, Rebound - Extremities Exam Extremities exam: normal inspection - Back Exam Back exam: NORMAL INSPECTION. absent: CVA tenderness (L), CVA tenderness (R) - Neurological Exam Neurological exam: Alert, CN II-XII Intact, Oriented x3 - Psychiatric Exam Psychiatric exam: Normal Affect, Normal Mood - Skin Skin Exam: Dry, Intact, Normal Color, Warm Discharge Plan - Discharge Medications Prescriptions: Ciprofloxacin HCl [Cipro] 500 mg PO Q12H #6 tablet Metronidazole [Flagyl] 500 mg PO TID #9 tab Ondansetron [Zofran] 4 mg PO Q4H PRN #20 tab PRN Reason: Nausea/Vomiting oxyCODONE [oxyCODONE Immediate Release Tab] 5 mg PO Q6H PRN #10 tab PRN Reason: Pain, Severe (8-10) - Follow Up Plan Condition: FAIR Disposition: HOME/ ROUTINE Instructions: Low Cholesterol, Saturated Fat, and Trans Fat Diet , Cholecystectomy, Laparoscopic Surgery, Gallstones (DC), Cholecystitis (DC), Cholecystitis (GEN) Additional Instructions: 1) Prescription: flat plate of abdominal X-ray in the week of July 26 to ensure Pancreatic Duct stent passes. 2) Patient to follow up with Dr. Corea, GI doctor, in 2 weeks. 3) Patient to call and schedule an appointment with the [facility] and to get a Complete Metabolic Panel prior to appointment to make sure your liver enzymes are trending down. 4) Patient is to schedule and appointment in Dr. Leyva's office in 1-2 weeks. 5) Patient is to take any medication as prescribed. 6) Patient to avoid alcohol drinking or even contact with alcohol containing substances while taking Metronidazole. 7) Patient given work excuse for Wednesday and Wednesday07/19/17 and 07/20/17. 8) Patient can shower, but not to bathe or soak incisions. Referrals: [facility] at [facility] [Outside] Cory Leyva MD [Staff Provider] - Sebastian Corea MD [Staff Provider] - <Cas Gracia - Last Filed: 07/18/17 13:31> Provider - Provider Date of Admission: 07/14/17 08:43 Attending physician: Cas Gracia MD Hospital Course - Lab Results Lab Results: Micro Results 07/14/17 08:55 Blood Blood Culture - Preliminary NO GROWTH AFTER 4 DAYS 07/14/17 08:55 Blood Blood Culture - Preliminary NO GROWTH AFTER 4 DAYS Most Recent Lab Values WBC 7.0 10^3/ul (4.5-11.0) D 07/16/17 06:45 RBC 3.62 10^6/uL (3.5-6.1) 07/16/17 06:45 Hgb 10.5 g/dL (12.0-16.0) L 07/16/17 06:45 Hct 31.3 % (36.0-48.0) L 07/16/17 06:45 MCV 86.5 fl (80.0-105.0) 07/16/17 06:45 MCH 29.0 pg (25.0-35.0) 07/16/17 06:45 MCHC 33.5 g/dl (31.0-37.0) 07/16/17 06:45 RDW 13.4 % (11.5-14.5) 07/16/17 06:45 Plt Count 350 10^3/uL (120.0-450.0) 07/16/17 06:45 MPV 11.0 fl (7.0-11.0) 07/16/17 06:45 Gran % 73.6 % (50.0-68.0) H 07/16/17 06:45 Lymph % (Auto) 19.0 % (22.0-35.0) L 07/16/17 06:45 [place] % (Auto) 6.0 % (1.0-6.0) 07/16/17 06:45 Eos % (Auto) 1.3 % (1.5-5.0) L 07/16/17 06:45 Baso % (Auto) 0.1 % (0.0-3.0) 07/16/17 06:45 Gran # 5.18 (1.4-6.5) 07/16/17 06:45 Lymph # (Auto) 1.3 (1.2-3.4) 07/16/17 06:45 [place] # (Auto) 0.4 (0.1-0.6) 07/16/17 06:45 Eos # (Auto) 0.1 (0.0-0.7) 07/16/17 06:45 Baso # (Auto) 0.01 K/mm3 (0.0-2.0) 07/16/17 06:45 PT 11.9 SECONDS (9.4-12.5) 07/14/17 05:33 INR 1.03 (0.93-1.08) 07/14/17 05:33 APTT 27.1 Seconds (25.1-36.5) 07/14/17 05:33 Sodium 139 mmol/L (132-148) 07/16/17 06:45 Potassium 3.6 mmol/L (3.6-5.0) 07/16/17 06:45 Chloride 105 mmol/L (98-107) 07/16/17 06:45 Carbon Dioxide 25 mmol/L (21-33) 07/16/17 06:45 Anion Gap 13 (10-20) 07/16/17 06:45 BUN 6 mg/dL (7-21) L 07/16/17 06:45 Creatinine 0.5 mg/dl (0.7-1.2) L 07/16/17 06:45 Est GFR ( Amer) > 60 07/16/17 06:45 Est GFR (Non-Af Amer) > 60 07/16/17 06:45 POC Glucose (mg/dL) 76 mg/dL (65-110) 07/17/17 11:40 Random Glucose 98 mg/dL (70-110) 07/16/17 06:45 Hemoglobin A1c 5.2 % (4.2-6.5) 07/14/17 05:33 Calcium 9.1 mg/dL (8.4-10.5) 07/16/17 06:45 Total Bilirubin 0.6 mg/dL (0.2-1.3) 07/16/17 06:45 AST 110 U/L (14-36) H D 07/16/17 06:45 ALT 360 U/L (7-56) H 07/16/17 06:45 Alkaline Phosphatase 175 U/L (38-126) H 07/16/17 06:45 Total Protein 6.2 g/dL (5.8-8.3) 07/16/17 06:45 Albumin 3.4 g/dL (3.0-4.8) 07/16/17 06:45 Globulin 2.8 gm/dL 07/16/17 06:45 Albumin/Globulin Ratio 1.2 (1.1-1.8) 07/16/17 06:45 Lipase 81 U/L (23-300) 07/14/17 05:33 Urine Color Yellow (YELLOW) 07/14/17 05:33 Urine Appearance Sl cloudy (CLEAR) 07/14/17 05:33 Urine pH 8.0 (4.7-8.0) 07/14/17 05:33 Ur Specific [place] 1.020 (1.005-1.035) 07/14/17 05:33 Urine Protein Trace mg/dL (<30 mg/dL) H 07/14/17 05:33 Urine Glucose (UA) Negative mg/dL (NEGATIVE) 07/14/17 05:33 Urine Ketones Negative mg/dL (NEGATIVE) 07/14/17 05:33 Urine Blood Trace-intact (NEGATIVE) H 07/14/17 05:33 Urine Nitrate Negative (NEGATIVE) 07/14/17 05:33 Urine Bilirubin Small (NEGATIVE) H 07/14/17 05:33 Urine Urobilinogen 4.0 E.U./dL (<1 E.U./dL) H 07/14/17 05:33 Ur Leukocyte Esterase Negative Enrico/uL (NEGATIVE) 07/14/17 05:33 Urine RBC 0 - 2 /hpf (0-2) 07/14/17 05:33 Urine WBC 0 - 2 /hpf (0-6) 07/14/17 05:33 Ur Epithelial Cells 4 - 5 /hpf (0-5) 07/14/17 05:33 Urine Bacteria Mod (NEG) 07/14/17 05:33 Urine HCG, Qual Negative (NEGATIVE) 07/16/17 12:24 Anti-Mitochondrial Ab Negative (Negative) 07/14/17 08:55 Smooth Muscle Ab Titer 1:40 Titer (< 1:20) H 07/14/17 08:55 Anti-Smooth Muscle Ab Positive (Negative) H 07/14/17 08:55 Liver/Kid Microsomes Ab <=20.0 U (<=20.0) 07/14/17 08:55 Hepatitis A IgM Ab Negative (NEGATIVE) 07/14/17 08:55 Hep Bs Antigen Negative (NEGATIVE) 07/14/17 08:55 Hep B Core IgM Ab Negative (NEGATIVE) 07/14/17 08:55 Hepatitis C Antibody Negative (NEGATIVE) 07/14/17 08:55 Attending/Attestation - Attestation I have personally seen and examined this patient.: Yes I have fully participated in the care of the patient.: Yes I have reviewed all pertinent clinical information, including history, physical exam and plan: Yes Notes (Text): 07/18/17 13:28 Medical record note made by the resident after discussion with my direction and input after the patient was personally seen and examined by me. I have reviewed the chart and agree that the record accurately reflects by personal performance of the history, physical exam, data review, and medical decision-making, in the course for the patient. I have also personally directed the plan of care. 22 yrs old female was admitted with acute gall stone cholycystitis, elevated LFT.She underwent ,MRCP showed stone in CBD followed by ERCP and removal of stone .She underwent cholycystectomy yesterday, she remain stable after surgery.She is tolerating food.She will be discharged home and will follow up with [facility] clinic and surgery.She will need repeat LFT in one week.This was discussed in detail with her. Management plan was discussed in detail with patient. Education was provided.
--- NOTE | 2017-07-18 22:02 | OP ---
PROCEDURE DATE: 07/16/2017 PREOPERATIVE DIAGNOSES: Cholecystitis and choledocholithiasis, status post endoscopic retrograde cholangiopancreatography. POSTOPERATIVE DIAGNOSES: Cholecystitis and choledocholithiasis, status post endoscopic retrograde cholangiopancreatography. PROCEDURE: Laparoscopic cholecystectomy. SURGEON: Cory Leyva MD. ASSISTANTS: Dr. Bautista and Dr. Palma. TYPE OF ANESTHESIA: General. ANESTHESIA ADMINISTERED BY: Jacob Palma DO DESCRIPTION OF OPERATION: With the patient in the supine position under adequate general anesthesia, the abdomen was prepped and draped in the usual sterile manner. Veress needle puncture was performed at the umbilicus with insufflation to 15 cm water pressure of CO2 and a 10-mm laparoscopic trocar was inserted via an infraumbilical incision. Under direct vision, additional trocars were inserted in the epigastrium and right costal margin. The gallbladder was visualized. The wall appeared slightly thickened, although the gallbladder was not tensely distended and did not appear acutely inflamed. The fundus was grasped and elevated. The infundibulum was grasped and retracted laterally. The thickened tissue around the infundibulum was gently dissected downward to identify the cystic duct and the cystic duct was identified and dissected. It was cleared down toward the junction of the common bile duct. The cystic duct was then viewed anteriorly and posteriorly entering the gallbladder and the cystic duct was triply clipped and divided. Anterior and posterior branches of the cystic artery were identified and dissected and each was triply clipped and divided and the gallbladder was dissected free of the liver bed using electrocautery. The liver bed was inspected for hemostasis and the dissection was completed. The gallbladder was placed in a specimen retrieval bag and removed via the umbilical port site. Right upper quadrant was irrigated and suctioned. The pneumoperitoneum was released and the trocars were removed. The umbilical port site was closed with a [id number] fascial suture of 0 Vicryl. All incisions were closed with 4-0 Monocryl subcuticular sutures and Steri-Strips. Dry sterile dressings were applied. The patient tolerated the procedure well and transferred to the recovery room in stable condition. Estimated blood loss from the procedure was 30 mL. Cory Leyva MD [facility] # [id number] MTDDawn
--- NOTE | 2017-07-20 06:43 | OP ---
PROCEDURE DATE: 07/16/2017 SURGEON: Cory Leyva MD PLANT BREEDER: Dr. Bautista and Dr. Palma. TYPE OF ANESTHESIA: General. ANESTHESIA ADMINISTERED BY: Jacob Palma DO PREOPERATIVE DIAGNOSES: Acute cholecystitis and choledocholithiasis status post endoscopic retrograde cholangiopancreatography. POSTOPERATIVE DIAGNOSES: Acute cholecystitis and choledocholithiasis status post endoscopic retrograde cholangiopancreatography. PROCEDURE: Laparoscopic cholecystectomy. DESCRIPTION OF OPERATION: With the patient in the supine position under adequate general anesthesia, the abdomen was prepped and draped in the usual sterile manner. Veress needle puncture was performed at the umbilicus with insufflation to 15 cm water pressure of CO2 and a 10-mm laparoscopic trocar was inserted via the infraumbilical incision. Under direct vision, additional trocars were inserted in the epigastrium and right costal margin. The gallbladder was identified. It was not tensely distended; however, the was somewhat thickened. The gallbladder fundus was grasped and elevated. The infundibulum was grasped and retracted laterally. The peritoneal lining and tissue surrounding the area of cystic duct were noted to be thickened consistent with the patient's recent ERCP, and the cystic duct was identified and dissected. The peritoneal attachment along both sides of the gallbladder were freed body of the gallbladder to allow mobilization and visualization of the cystic duct, and the cystic duct was identified as well as the cystic artery. The cystic duct was then triply clipped and divided, and the cystic artery anterior and posterior branches were separately triply clipped and divided. The gallbladder was dissected free of the liver bed using electrocautery. The liver bed was inspected for hemostasis and the dissection was completed. The gallbladder was placed in a specimen retrieval bag and removed via the umbilical port site. Right upper quadrant was irrigated and suctioned. The pneumoperitoneum was released and the trocars were removed. The umbilical port site was closed with a [id number] fascial suture of 0 Vicryl. All incisions were closed with 4-0 Monocryl subcuticular sutures and Steri-Strips. Dry sterile dressings were applied. The patient tolerated the procedure well and transferred to the recovery room in stable condition. Estimated blood loss from the procedure was 30 mL. Cory Leyva MD [facility] # [id number]
== END 2017-07-17 12:51 | disposition home or self-care (01) | DRG 418 ==
LOC: ED 05:21 → ERH 08:43 → 5RSO 10:11
PROVIDERS: ADMIT Internal Medicine; ATTEND Internal Medicine
PROC: 0FC98ZZ Extirpation of Matter from Common Bile Duct, Via Natural or Artificial Opening Endoscopic (ICD-10-PCS; 2017-07-15 14:15)
PROC: 0F7D8DZ Dilation of Pancreatic Duct with Intraluminal Device, Via Natural or Artificial Opening Endoscopic (ICD-10-PCS; 2017-07-15 14:15)
PROC: 0FT44ZZ Resection of Gallbladder, Percutaneous Endoscopic Approach (ICD-10-PCS; principal; 2017-07-16 13:00)
DX: K80.42 Calculus of bile duct with acute cholecystitis without obstruction (principal); K80.10 Calculus of gallbladder with chronic cholecystitis without obstruction; F17.210 Nicotine dependence, cigarettes, uncomplicated; R40.2412 Glasgow coma scale score 13-15, at arrival to emergency department; K83.8 Other specified diseases of biliary tract; R74.0 Nonspecific elevation of levels of transaminase and lactic acid dehydrogenase [LDH]; F12.90 Cannabis use, unspecified, uncomplicated